=== PATIENT | female | born 1955 | race Caucasian/White ===

== ENCOUNTER 2025-01-27 10:12 | Outpatient (AMB) | payer MEDICARE, SELFPAY ==
[2025-01-27 10:53] VITALS: BMI 32.9
--- NOTE | 2025-01-27 10:53 | A.SPINEOV_ITS ---
Vital Signs 01/27/25 10:53 Height 5 ft 2 in Weight 180 lb BMI 32.9 Intake Visit Reasons: spinal stenosis Intake Note: Mrs. Longoria is here today c/o Low back pain difficulty with walking. Vending Machine Refiller Required: No Allergies No Known Allergies Allergy (Verified 01/27/25 10:54) Physical Exam Vital Signs: BMI result Body Mass Index 32.9 Assessment & Plan Assessment & Plan (1) Lumbar stenosis with neurogenic claudication: Code(s): M48.062 - Spinal stenosis, lumbar region with neurogenic claudication Category: Medical Plan Dear colleague Thank you for referring Malorie Longoria to the office today with a chief complaint of bilateral leg pain. HPI: This 69-year-old female has a 4 year history of a progressive pain down both legs with numbness after a short period of walking or standing. She can not stand or walk for more than 5 minutes before the symptoms started. If she stands in the kitchen she constantly has to sit down. Leaning forward improves the symptoms. She denies weakness bowel urinary problems. The following conservative treatment options were tried without success antiinflammatories, tylenol, physical therapy and 3 cortisone shots. One cortisone injection gave her relief for 2 months after the symptoms returned. PMH: Type 2 diabetes, Skin cancer Medications: Metformin, gabapentin Allergies: NKDA Social history: . Avid golfer. Nonsmoker Physical Exam: Pleasant female that is in severe agony after short period of standing in my office. The pain radiates down both legs with subjective paresthesias. On individual testing of the strength there are no deficits. Radiological Studies: MRI done at [facility] on 01/19/2025 shows severe L4-5 spinal stenosis. An MRI of 10/19/2023 shows a similar image. There was mild hyperintensity of the facet joints. A standing x-ray of 10/21/2018 shows no signs of instability. Impression/Plan: This patient is suffering from neurogenic claudication due to severe L4-5 spinal stenosis. She was offered aMILD procedure by pain management, which I think would be contraindicated in a patient with such as severe stenosis. I offered her an L4-5 decompression. She is scheduled for 04/06/2025 Thank you for allowing me to participate in your patients care. total time spent was 50 minutes in counseling ,coordination of plan, personal review of imaging, surgical decision making and subsequent plan Kristian Baker MD, PhD Spine Fellowship Trained Neurosurgeon Director, [facility] Coding Level of Care Code New Pt Level 4 (97963) Diagnoses Lumbar stenosis with neurogenic claudication M48.062
--- OUTSIDE RECORDS SUMMARY | 2025-01-27 11:03 | XMS_ITS | Encounter Summary ---
Author Organization [facility] Address [address] [place] [address] Phone Care Team Providers Care Sustainable Products Marketing Manager Name Role Phone Milad Beasley MD Unavailable + Ant Alcantar MD Unavailable Amy Callahan MD Unavailable [phone] Jesus Manuel Damon MD Unavailable Froy Gastelum MD Unavailable [phone] Amy Callahan A Primary Care Provider Jesus Manuel Damon MD Primary Care Provider + Amy Callahan A Primary Care Provider Encounter Details Date Type Department Care Team (Late st Contact Info) Description 10/13/2017 Ancillary Orders [facility] [address] [place] [address] Yareli Diane PA-C [address] [place] [address] Orthopedics & Sports Medicine, [facility] [place], [place] [id number] Social History Tobacco Use Types Packs/Day Years Used Date Smoking Tobacco: Never Smokeless Tobacco: Never Alcohol Use Standard Drinks/Week Comments Yes 0 (1 standard drink = 0.6 oz pur e alcohol) occasionally Comments No Sex and Gender Information Value Date Recorded Sex Assigned at Not on file Legal Sex Female 9:52 PM EDT Gender Identity Not on file Sexual Orientation Not on file documented as of this encounter Plan of Treatment Upcoming Encounters Date Type Department Care Team (Late st Contact Info) Description 08/29/2025 2:30 PM EDT Office Visit [facility] [address] [place] [address] [place] [address] Amy Callahan MD [address] [place] [address] [email or web address] documented as of this encounter Visit Diagnoses Not on filedocumented in this encounter Additional Health Concerns Infection Onset Date Last Indicated Resolved Time CoV-Risk 03/14/2020 03/15/2020 03/28/2020 1:24 AM EST documented as of this encounter Care Teams Sustainable Products Marketing Manager Relationship Specialty Start Date End Date Amy Callahan MD [address] [place] [address] [email or web address] PCP - General 02/10/17 10/06/18 Jesus Manuel Damon MD [address] [place] [address] [email or web address] PCP - General Family Medicine 10/07/18 10/20/18 Amy Callahan MD [address] [place] [address] [email or web address] PCP - General Internal Medicine 10/21/18 Milad Beasley MD [address] [place] [address] [email or web address] Historical LMR Provider 02/09/17 05/04/21 Ant Alcantar MD [address] [place] [address] [email or web address] Historical LMR Provider 02/09/17 Amy Callahan MD [address] [place] [address] [email or web address] Historical LMR Provider 02/09/17 Jesus Manuel Damon MD [address] [place] [address] [email or web address] Historical LMR Provider 10/07/18 Froy Gastelum MD [address] [place] [address] Historical LMR Provider 02/09/17 documented as of this encounter Additional Source Comments The information contained in this document represents components of the legal health record. It is not the complete legal health record.[facility]
--- OUTSIDE RECORDS SUMMARY | 2025-01-27 11:03 | XMS_ITS | Encounter Summary ---
Author Organization [facility] Address [address] [place] [address] [place] [address] Phone Care Team Providers Care Rn Faculty Name Role Phone Milad Beasley MD Unavailable + Ant Alcantar MD Unavailable [phone] Amy Callahan MD Unavailable [phone] Jesus Manuel Damon MD Unavailable [phone] Froy Gastelum MD Unavailable [phone] Amy Callahan MD Primary Care Provider Encounter Details Date Type Department Care Team (Late st Contact Info) Description 03/07/2021 Procedure Pass [facility] - [address] [place] [address] Social History Tobacco Use Types Packs/Day Years Used Date Smoking Tobacco: Never Smokeless Tobacco: Never Alcohol Use Standard Drinks/Week Comments Yes 5 (1 standard drink = 0.6 oz pur e alcohol) weekly Comments No Sex and Gender Information Value Date Recorded Sex Assigned at Not on file Legal Sex Female 9:52 PM EDT Gender Identity Not on file Sexual Orientation Not on file documented as of this encounter Plan of Treatment Upcoming Encounters Date Type Department Care Team (Late st Contact Info) Description 08/29/2025 2:30 PM EDT Office Visit [facility] [address] [place] [address] [place] [address] Amy Callahan MD [address] [place] [address] [email or web address] documented as of this encounter Visit Diagnoses Not on filedocumented in this encounter Additional Health Concerns Assessment Noted Time PHQ-2 Depression Total Score: 0 05/05/19 20 2:41 PM EST documented as of this encounter Care Teams Rn Faculty Relationship Specialty Start Date End Date Amy Callahan MD [address] [place] [address] [email or web address] PCP - General Internal Medicine 10/21/18 Milad Beasley MD [address] [place] [address] [email or web address] Historical LMR Provider 02/09/17 05/04/21 Ant Alcantar MD [address] [place] [address] [email or web address] Historical LMR Provider 02/09/17 Amy Callahan MD [address] [place] [address] [email or web address] Historical LMR Provider 02/09/17 Jesus Manuel Damon MD [address] [place] [address] [email or web address] Historical LMR Provider 10/07/18 Froy Gastelum MD [address] [place] [address] Historical LMR Provider 02/09/17 documented as of this encounter Additional Source Comments The information contained in this document represents components of the legal health record. It is not the complete legal health record.[facility]
--- OUTSIDE RECORDS SUMMARY | 2025-01-27 11:03 | XMS_ITS | Encounter Summary ---
Author Organization [facility] Address [address] [facility] [address] [place] [address] Phone Care Team Providers Care Patents Examiner Name Role Phone Milad Beasley MD Unavailable + Ant Alcantar MD Unavailable [phone] Amy Callahan MD Unavailable [phone] Jesus Manuel Damon MD Unavailable Froy Gastelum MD Unavailable [phone] Amy Callahan A Primary Care Provider [phone] Jesus Manuel Damon MD Primary Care Provider + Amy Callahan A Primary Care Provider [phone] Encounter Details Date Type Department Care Team (Late st Contact Info) Description 01/21/2018 Ancillary Orders [facility] [address] [place] [address] [place] [address] Amy Callahan MD [address] [facility], 2nd [place] [address] [email or web address] Breast screening Social History Tobacco Use Types Packs/Day Years [...] Description 08/29/2025 2:30 PM EDT Office Visit [facility] [address] [place] [address] [place] [address] Amy Callahan MD [address] [place] [address], [address] [place] [address] [email or web address] documented as of this encounter Results * BI MAMMOGRAM SCREENING WITH TOMOSYNTHESIS WITH CAD (BILATERAL) (04/01/2018 1:50 PM EST) Anatomical Region Laterality Modality Breast Left, Breast Right, Breast Bilateral Bila teral Mammography 04/02/2018 4:18 PM EST Impressions 04/02/2018 4:22 PM EST No mammographic change indicative of malignancy. Routine screening is recommended. BI-RADS CATEGORY: 1 - Negative. DENSITY: There are scattered fibroglandular densities. POS - CDHMAM2 Narrative 04/02/2018 4:22 PM EST FINDINGS: Bilateral full-field digital screening mammography is obtained and read in conjunction with computer-aided detection. 3-D tomosynthesis as well as 2-D C view imaging is also performed. Comparison includes the most recent exam from 03/12/2017 and as far back as 04/24/2011. Breasts are composed of scattered fibroglandular tissue. No new suspicious mass, suspicious microcalcifications, architectural distortion, focal skin thickening, or new asymmetry is detected. Procedure Note Vladimir Baldwin MD - 04/02/2018 FINDINGS: Bilateral full-field digital screening mammography is obtained and read inconjunction with computer-aided detection. 3-D tomosynthesis as well as2-D C view imaging is also performed. Comparison includes the most recentexam from 03/12/2017 and as far back as 04/24/2011. Breasts are composed of scattered fibroglandular tissue. No newsuspicious mass, suspicious microcalcifications, architectural distortion,focal skin thickening, or new asymmetry is detected. IMPRESSION: No mammographic change indicative of malignancy. Routine screening isrecommended. BI-RADS CATEGORY: 1 - Negative. DENSITY: There are scattered fibroglandular densities. POS - CDHMAM2 us Amy Callahan MD IMG MG EXAMS Final Result documented in this encounter Visit Diagnoses Diagnosis Breast screening Breast screening, unspecified Breast screening Breast screening, unspecified documented in this encounter Additional Health Concerns Infection Onset Date Last Indicated Resolved Time CoV-Risk 03/14/2020 03/15/2020 03/28/2020 1:24 AM EST documented as of this encounter Care Teams Patents Examiner Relationship Specialty Start Date End Date Amy Callahan MD [address] [place] [address] [email or web address] PCP - General 02/10/17 10/06/18 Jesus Manuel Damon MD [address] [place] [address] [email or web address] PCP - General Family Medicine 10/07/18 10/20/18 Amy Callahan MD [address] [place] [address] [email or web address] PCP - General Internal Medicine 10/21/18 Milad Beasley MD [address] [place] [address] [email or web address] Historical LMR Provider 02/09/17 05/04/21 Ant Alcantar MD [address] [place] [address] [email or web address] Historical LMR Provider 02/09/17 Amy Callahan MD [address] [place] [address], [address] [place] [place] [address] [email or web address] Historical LMR Provider 02/09/17 Jesus Manuel Damon MD [address] [place] [address] [email or web address] Historical LMR Provider 10/07/18 Froy Gastelum MD [address] [place] [address] Historical LMR Provider 02/09/17 documented as of this encounter Additional Source Comments The information contained in this document represents components of the legal health record. It is not the complete legal health record.[facility]
--- OUTSIDE RECORDS SUMMARY | 2025-01-27 11:03 | XMS_ITS | Encounter Summary ---
Author Organization [facility] Address [address] [place] [address] [place] [address] Phone Care Team Providers Care Engineering Librarian Name Role Phone Ant Alcantar MD Unavailable [phone] Amy Callahan MD Unavailable [phone] Jesus Manuel Damon MD Unavailable [phone] Amy Callahan MD Primary Care Provider [phone] Encounter Details Date Type Department Care Team (Late st Contact Info) Description 12/02/2022 Procedure Pass [place] Admitting Dept - Virtual Department [address] [place], [place] [id number] Social History Tobacco Use Types Packs/Day Years Used Date Smoking Tobacco: Never Smokeless Tobacco: Never Alcohol Use Standard Drinks/Week Comments Yes 10 (1 standard drink = 0.6 oz pu re alcohol) Child or Family Care Answer Date Record ed Do you have problems with on e of the following making it difficult for you to work, study, or receive health care? No 05/20/2022 Education Answer Date Recorded Are you interested in help w ith more adult education (for example, completing high school, GED, job training, learning the Hungarian language, technical skills, or developing parenting skills)? No 05/20/2022 Food Answer Date Recorded Within the past 6 months we worried whether our food would run out before we got money to buy more. Never True 05/20/2022 Within the past 6 months the food we bought just didn't last and we didn't have enough money to get more. Never True Residential Stability Answer Date Recor ded What is your housing situation today? I have anusha bolivar 05/20/2022 How many times have you move d in the past 12 months? Zero (I did not move) 05/20/2022 Paying for Meds Answer Date Recorded Do you have trouble paying for medicines? No 05/20/2022 Paying Utility Bills Answer Date Record ed Do you have trouble paying your heating or elect ricity bill? No 05/20/2022 Transportation Answer Date Recorded Has the lack of transportati on kept you from medical appointments or from getting medications? No 05/20/2022 Unemployment Answer Date Recorded Are you currently unemployed or working on a part-time or temporary basis, and looking for work? No 05/20/2022 Digital Access Answer Date Recorded No 09/16/2022 No 09/16/2022 Reliable internet access at home? Not on file 09/16/2022 Device with a working camera? Not on file Intimate Partner Violence Answer Date R ecorded Are you denied basic needs s uch as food, clothing, or medical care? No 12/02/2022 In the past 12 months have y ou been in a relationship with a person who hurts, threatens, or tries to control you? No 12/02/2022 Are you denied basic needs s uch as food, clothing, or medical care? No 12/02/2022 In the past 12 months have y ou been in a relationship with a person who hurts, threatens, or tries to control you? No 12/02/2022 Comments No Sex and Gender Information Value Date Recorded Sex Assigned at Not on file Legal Sex Female 9:52 PM EDT Gender Identity Not on file Sexual Orientation Not on file documented as of this encounter Plan of Treatment Upcoming Encounters Date Type Department Care Team (Late st Contact Info) Description 08/29/2025 2:30 PM EDT Office Visit [facility] [address] [place] [address] [place] [address] Amy Callahan MD [address] [place] [address], [address] [place] [address] [email or web address] documented as of this encounter Visit Diagnoses Not on filedocumented in this encounter Additional Health Concerns Assessment Noted Time PHQ-2 Depression Total Score: 0 05/20/19 23 1:15 PM EST documented as of this encounter Care Teams Engineering Librarian Relationship Specialty Start Date End Date Amy Callahan MD [address] [place] [address] [email or web address] PCP - General Internal Medicine 10/21/18 Ant Alcantar MD [address] [place] [address] [email or web address] Historical LMR Provider 02/09/17 Amy Callahan MD [address] [place] [address] [email or web address] Historical LMR Provider 02/09/17 Jesus Manuel Damon MD [address] [place] [address] [email or web address] Historical LMR Provider 10/07/18 documented as of this encounter Additional Source Comments The information contained in this document represents components of the legal health record. It is not the complete legal health record.[facility]
--- OUTSIDE RECORDS SUMMARY | 2025-01-27 11:03 | XMS_ITS | Encounter Summary ---
Author Organization [facility] Address [address] [place] [address] Phone Care Team Providers Care Grey Goods Examiner Name Role Phone Milad Beasley MD Unavailable + Ant Alcantar MD Unavailable [phone] Amy Callahan MD Unavailable [phone] Jeuss Manuel Damon MD Unavailable Froy Gastelum MD Unavailable [phone] Amy Callahan MD Primary Care Provider [phone] Encounter Details Date Type Department Care Team (Latest Contact Info) Description 04/22/2019 Transcribe Orders [address] [place] [address] Pasquale Hawthorne MD [address] [place] [address], [address] [place], [place] [id number] [email or web address] Weakness (Primary Dx) Social History Tobacco Use Types Packs/Day Years Used Date Smoking Tobacco: Never Smokeless Tobacco: Never Alcohol Use Standard Drinks/Week Comments Yes 3 (1 standard drink = 0.6 oz pur [...] Description 08/29/2025 2:30 PM EDT Office Visit [facility] [address] [place] [address] [place] [address] Amy Callahan MD [address] [place] [address] [email or web address] documented as of this encounter Results * (ABNORMAL) Glucose (04/22/2019 10:15 AM EST) GLUCOSE 121(H) 70 - 99 mg/dL [facility] Blood 04/22/2019 10:1 5 AM EST 04/22/2019 10:17 AM EST us Pasquale Hawthorne MD LAB BLOOD ORDERABLES Final R esult [facility] [address] [place] [address] documented in this encounter Visit Diagnoses Diagnosis Weakness- Primary Other malaise and fatigue documented in this encounter Additional Health Concerns Infection Onset Date Last Indicated Resolved Time CoV-Risk 03/14/2020 03/15/2020 03/28/2020 1:24 AM EST Assessment Noted Time PHQ-2 Depression Total Score: 0 04/29/19 2:47 PM EST documented as of this encounter Care Teams Grey Goods Examiner Relationship Specialty Start Date End Date Amy Callahan MD [address] [place] [address] [email or web address] PCP - General Internal Medicine 10/21/18 Milad Beasley MD [address] [place] [address] [email or web address] Historical LMR Provider 02/09/17 05/04/21 Ant Alcantar MD [address] [place] [address] [email or web address] Historical LMR Provider 02/09/17 Amy Callahan MD [address] [place] [address] [email or web address] Historical LMR Provider 02/09/17 Jesus Manuel Damon MD [address] [place] [address] [email or web address] Historical LMR Provider 10/07/18 Froy Gastelum MD [address] [place] [address] Historical LMR Provider 02/09/17 documented as of this encounter Additional Source Comments The information contained in this document represents components of the legal health record. It is not the complete legal health record.[facility]
--- OUTSIDE RECORDS SUMMARY | 2025-01-27 11:03 | XMS_ITS | Encounter Summary ---
Author Organization [facility] Address [address] [place] [address] Phone Care Team Providers Care Mohs Surgeon Name Role Phone Milad Beasley MD Unavailable + Ant Alcantar MD Unavailable [phone] Amy Callahan MD Unavailable [phone] Jesus Manuel Damon MD Unavailable Froy Gastelum MD Unavailable [phone] Amy Callahan A Primary Care Provider Jesus Manuel Damon MD Primary Care Provider + Amy Callahan A Primary Care Provider Encounter Details Date Type Department Care Team (Late st Contact Info) Description 10/13/2017 Ancillary Orders [address] [address] Yareli Diane PA-C [address] [place] [address] Orthopedics & Sports Medicine, [place], [place] [id number] [email or web address] Left wrist pain Social History Tobacco Use Types Packs/Day Years [...] 08/29/2025 2:30 PM EDT Office Visit [facility] [address] [place] [address] [place] [address] Amy Callahan MD [address] [place] [phone] [email or web address] documented as of this encounter Results * XR WRIST 2 VIEWS (LEFT) (10/15/2017 9:49 AM EDT) Narrative Rosie Hernández - 10/15/2017 9:49 AM EDT This image report has been auto-finalized and has not been read by a Radiologist. Interpretation has been included in the provider encounter note for this date of service. us Roxy Mello MD IMG XR UPPER EXTREMITY Final Result documented in this encounter Visit Diagnoses Diagnosis Left wrist pain Pain in joint, forearm Left wrist pain Pain in joint, forearm documented in this encounter Additional Health Concerns Infection Onset Date Last Indicated Resolved Time CoV-Risk 03/14/2020 03/15/2020 03/28/2020 1:24 AM EST documented as of this encounter Care Teams Mohs Surgeon Relationship Specialty Start Date End Date Amy Callahan MD [address] [place] [address] [email or web address] PCP - General 02/10/17 10/06/18 Jesus Manuel Damon MD [address] [place] [address] [email or web address] PCP - General Family Medicine 10/07/18 10/20/18 Amy Callahan MD [address] [place] [phone] [email or web address] PCP - General Internal Medicine 10/21/18 Milad Beasley MD [address] [place] [phone] [email or web address] Historical LMR Provider 02/09/17 05/04/21 Ant Alcantar MD [address] [place] [address] [email or web address] Historical LMR Provider 02/09/17 Amy Callahan MD [address] [place] [address] [email or web address] Historical LMR Provider 02/09/17 Jesus Manuel Damon MD [address] [place] [address] [email or web address] Historical LMR Provider 10/07/18 Froy Gastelum MD [address] [place] [address] Historical LMR Provider 02/09/17 documented as of this encounter Additional Source Comments The information contained in this document represents components of the legal health record. It is not the complete legal health record.[facility]
--- OUTSIDE RECORDS SUMMARY | 2025-01-27 11:03 | XMS_ITS | Encounter Summary ---
Author Organization [facility] Address [address] [facility] [address] [place] [address] Phone Care Team Providers Care Mortgage Loan Funder Name Role Phone Ant Alcantar MD Unavailable [phone] Amy Callahan MD Unavailable [phone] Jesus Manuel Damon MD Unavailable [phone] Amy Callahan MD Primary Care Provider [phone] Encounter Details Date Type Department Care Team (Late st Contact Info) Description 03/11/2024 Procedure Pass [facility] [address] [place] [address] Social History Tobacco Use Types Packs/Day Years Used Date Smoking Tobacco: Never Smokeless Tobacco: Never Alcohol Use Standard Drinks/Week Comments Yes 12 (1 standard drink = 0.6 oz pu [...] high school, GED, job training, learning the [place] language, technical skills, or developing parenting skills)? [...] EDT Office Visit [facility] [address] [place] [address] [place] [address] Amy Callahan MD [address] [place] [address], [address] [place] [address] [email or web address] documented as of this encounter Visit Diagnoses Not on filedocumented in this encounter Additional Health Concerns Assessment Noted Time PHQ-2 Depression Total Score: 0 07/28/19 25 10:26 AM EDT documented as of this encounter Care Teams Mortgage Loan Funder Relationship Specialty Start Date End Date Amy Callahan MD [address] [place] [address] [email or web address] PCP - General Internal Medicine 10/21/18 Ant Alcantar MD [address] [place] [address] [email or web address] Historical LMR Provider 02/09/17 Amy Callahan MD [address] [place] [address] [email or web address] Historical LMR Provider 02/09/17 Jesus Manuel Damon MD [address] [place] [address] [email or web address] Historical LMR Provider 10/07/18 documented as of this encounter Additional Source Comments The information contained in this document represents components of the legal health record. It is not the complete legal health record.[facility]
--- OUTSIDE RECORDS SUMMARY | 2025-01-27 11:03 | XMS_ITS | Encounter Summary ---
Author Organization [facility] Address [address] [place] [address] [place] [address] Phone Care Team Providers Care Crime Investigator Special Agent Name Role Phone Ant Alcantar MD Unavailable [phone] Amy Callahan MD Unavailable [phone] Jesus Manuel Damon MD Unavailable [phone] Amy Callahan MD Primary Care Provider Encounter Details Date Type Department Care Team (Late st Contact Info) Description 08/02/2024 Procedure Pass [facility] [address] [place], [place] [id number] Social History Tobacco Use Types Packs/Day Years Used Date Smoking Tobacco: Never Smokeless Tobacco: Never Alcohol Use Standard Drinks/Week Comments Yes 10 (1 standard drink = 0.6 oz pu re alcohol) Child or Family Care Answer Date Record ed Do you have problems with on e of the following making it difficult for you to work, study, or receive health care? No 07/27/2024 Education Answer Date Recorded Are you interested in more education? Not on bam e 05/20/2024 Are you concerned about learning? Not on file 05/20/2024 No 05/20/2024 No 05/20/2024 Food Answer Date Recorded Within the past 6 months we worried whether our food would run out before we got money to buy more. Never True 07/27/2024 Within the past 6 months the food we bought just didn't last and we didn't have enough money to get more. Never True Residential Stability Answer Date Recor ded What is your housing situation today? I have anusha bolivar 07/27/2024 How many times have you move d in the past 12 months? Zero (I did not move) 07/27/2024 Paying for Meds Answer Date Recorded Do you have trouble paying for medicines? No 07/27/2024 Paying Utility Bills Answer Date Record ed Do you have trouble paying your heating or elect ricity bill? No 07/27/2024 Transportation Answer Date Recorded Has the lack of transportati on kept you from medical appointments or from getting medications? No 07/27/2024 Unemployment Answer Date Recorded Are you currently unemployed or working on a part-time or temporary basis, and looking for work? No 05/20/2022 Digital Access Answer Date Recorded No 07/27/2024 Yes 07/27/2024 Do you have reliable internet access at home? Ye s 07/27/2024 Do you have a device (e.g., phone, tablet, computer) with a working camera? Yes 07/27/2024 Intimate Partner Violence Answer Date R ecorded Denied Basic Needs Not on file 07/27/2024 In the past 12 months have y ou been in a relationship with a person who hurts, threatens, or tries to control you? No 07/27/2024 Worried food would run out Not on file 07/27 In the past 12 months have y ou been in a relationship with a person who hurts, threatens, or tries to control you? No 07/27/2024 Comments No Sex and Gender Information Value Date Recorded Sex Assigned at Not on file Legal Sex Female 9:52 PM EDT Gender Identity Not on file Sexual Orientation Not on file documented as of this encounter Plan of Treatment Upcoming Encounters Date Type Department Care Team (Late st Contact Info) Description 08/29/2025 2:30 PM EDT Office Visit [facility] [address] [place] [address] [place] [address] Amy Callahan MD [address] [place] [address], [address] [place] [address] documented as of this encounter Visit Diagnoses Not on filedocumented in this encounter Additional Health Concerns Assessment Noted Time PHQ-2 Depression Total Score: 0 07/28/19 25 10:26 AM EDT documented as of this encounter Care Teams Crime Investigator Special Agent Relationship Specialty Start Date End Date Amy Callahan MD [address] [place] [address] [email or web address] PCP - General Internal Medicine 10/21/18 Ant Alcantar MD [address] [place] [address] [email or web address] Historical LMR Provider 02/09/17 Amy Callahan MD [address] [place] [address] [email or web address] Historical LMR Provider 02/09/17 Jesus Manuel Damon MD [address] [place] [address] [email or web address] Historical LMR Provider 10/07/18 documented as of this encounter Additional Source Comments The information contained in this document represents components of the legal health record. It is not the complete legal health record.[facility]
--- OUTSIDE RECORDS SUMMARY | 2025-01-27 11:04 | XMS_ITS | Clinical Summary ---
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 Active gabapentin (NEURONTIN) 100 MG capsule Take 100 mg by mouth daily. 1-3 tablets daily Active tretinoin (RETIN-A) 0.05 % cream Apply topically nightly at bedtime. 4 Active metFORMIN (GLUCOPHAGE-XR) 500 MG 24 hr tablet Take 1 tablet (500 mg total) by mouth daily with dinner. 90 tablet 3 4 Active doxepin (SINEQUAN) 10 MG capsule Take 1 capsule (10 mg total) by mouth nightly at bedtime. 90 capsule 3 5 Active Active Problems Problem Noted Date Diagnosed Date Pre-diabetes 04/13/2024 Class 1 obesity 11/05/2022 11/05/2022 Facial basal cell cancer 07/15/2022 Overview (07/15/2022): Nose. Scheduled for Mohs procedure with next day plastic surgery reconstruction. Spinal stenosis 10/21/2018 Assessment & Plan (10/21/2018 3:06 PM EDT): Patient with bilateral thigh pain going down to the calves most likely central disc pinching a nerve effect is at night in the morning feel may be spinal stenosis did recommend starting with regular x-ray and then proceeding to physiatry. Did recommend Aleve but also prescription for prednisone 20 twice a day for 6 days if the pain worsens Myalgia 10/21/2018 Assessment & Plan (10/21/2018 3:06 PM EDT): Patient with bilateral calf but more thigh pain could be muscular but is a do not see this being due to any low potassium and low magnesium patient without sweating or any diuretics or GI blood loss. The possibility of Lyme's is low but real will check that and also check a CBC and sed rate Vulvar itching 12/03/2017 Assessment & Plan (12/03/2017 11:58 AM EDT): custodial symptoms with normal wet mount today. Rx given for hydrocortisone and terbinafine given exam findings. Reviewed application instructions, discussed vulvar skin care recommendations particularly around use of clear detergent and avoidance of fabric softener. Also discussed coconut oil PRN as moisture barrier. Closed fracture of left distal radius and ulna 0 09/11/2017 Encounters Date Type Department Care Team Description 01/19/2025 5:42 PM EDT - 01/19/2025 11:59 PM EDT Hospital Encounter [address] [address] Pasquale Vo, DO Discharge Disposition: Home or Self Care 12/22/2024 Procedure Pass [address] [address] 12/22/2024 Transcribe Orders Virtual Department [address] [place] [id number] Pasquale Vo, DO Spinal stenosis, lumbar region with neurogenic claudication (Primary Dx) 11/24/2024 1:13 PM EDT - 11/24/2024 11:59 PM EDT Hospital Encounter [facility], X-Ray - [facility] [address] [place] [address] Kayleen Nunez PA Discharge Disposition: Home or Self Care 11/15/2024 Transcribe Orders Virtual Department [address] [place] [address] Kayleen Nunez PA Other osteoarthritis of spine, lumbar region (Primary Dx) from Last 3 Months Immunizations Immunization Administration Dates Next Due COVID-19 (Pre-02/16) Moderna Vaccine, mRNA, PF 0 06/02/2020 COVID-19 (Pre-02/16) Pfizer Vaccine, mRNA, PF Influenza High-Dose Quadrivalent Preservative Fr ee IM 01/21/2023 Influenza Quadrivalent MDCK Preservative Free IM 01/14/2022 Influenza Trivalent Adjuvanted Preservative free IM 03/11/2024 Influenza, Unspecified Formulation 01/06/2008 Pneumococcal conjugate PCV20 05/20/2022 Td (adult),2 Lf Tetanus Toxoid, PF, Adsorbed Tdap 04/02/2021,02/02/2014 Zoster recombinant 08/27/2020,05/05/2019 Family History Medical History Relation Comments Sudden Brother Diabetes mellitus Mother Relation Status Comments Brother Father Mother Social History Tobacco Use Types Packs/Day Years Used Date Smoking Tobacco: Never Smokeless Tobacco: Never Tobacco Cessation:Counseling Given: Not Answered Alcohol Use Standard Drinks/Week Comments Yes 12 [...] on file Sexual Orientation Not on file Last Filed Vital Signs Vital Sign Reading Time Taken Comments Blood Pressure 134/66 08/02/2024 2:23 PM EDT Pulse 87 08/02/2024 2:23 PM EDT Temperature 36.2 C (97.1 F) 08/02/2024 2:23 PM EDT Respiratory Rate 13 12/02/2022 4:10 PM EDT Oxygen Saturation 96% 08/02/2024 2:23 PM EDT Inhaled Oxygen Concentration - - Weight 83.5 kg (184 lb) 01/13/2025 11:27 AM EDT Height 154.9 cm (5' 1 ) 01/13/2025 11:27 AM EDT Body Mass Index 34.77 01/13/2025 11:27 AM EDT Plan of Treatment Upcoming Encounters Date Type Department Care Team (Late st Contact Info) Description 08/29/2025 2:30 PM EDT Office Visit [facility] [address] [place] [address] Dr Kaminski JOSE LUIS [address] Amy Callahan MD [address] [place] [address], [address] [place] [address] [email or web address] Health Maintenance Due Date Last Done Comments COLOGUARD 2002 FIT TEST 2002 FOBT 2002 SIGMOIDOSCOPY 2002 VIRTUAL COLONOSCOPY 2002 INFLUENZA VACCINE (#1) 2024 , 01/21/2023, 01/14/2022, Additional history exists COVID-19 VACCINE ( season) 2024 03/11/2024, 01/21/2023, 11/22/2021, Additional history exists DEPRESSION SCREENING 07/27/2025 07/27/2024 CREATININE LEVEL 07/29/2025 07/29/2024, , 05/19/2022, Additional history exists PAP SMEAR 05/16/2026 05/16/2021, 02/20/2017 MAMMOGRAM 08/26/2026 08/26/2024, 08/2023, 04/30/2022, Additional history exists SCREENING FOR DIABETES 07/30/2027 , 07/29/2024, 04/22/2019, Additional history exists COLONOSCOPY 10/07/2028 10/07/2018 COLORECTAL CANCER SCREENING 10/07/2028 LIPID PANEL 07/29/2029 07/29/2024, 05/10/2020 Adult Td,Tdap Booster 04/02/2031 04/02/2021 , 02/02/2014, 02/24/2006 RSV VACCINE (1 - 1-dose 75+ series) 2032 ZOSTER VACCINES Completed 08/27/2020, 05/05/2019 PNEUMOCOCCAL VACCINES (50+ years) Completed 05/20/2022 HEPATITIS C SCREENING Completed 09/25/2023 OSTEOPOROSIS SCREENING INITIAL (ONE-TIME) Completed 03/23/2024 SMOKING STATUS SCREENING (Once After 26 Yrs) Completed 08/26/2024 HEPATITIS A VACCINES Aged Out No long er eligible based on patient's age to complete this topic HIB VACCINES Aged Out No longer eligi ble based on patient's age to complete this topic MENINGOCOCCAL VACCINES (ACWY) Aged Out No longer eligible based on patient's age to complete this topic MENINGOCOCCAL VACCINES (B) Aged Out N o longer eligible based on patient's age to complete this topic Medical Devices Not on file Procedures Procedure Name Priority Date/Time Associated Diagnosis Comments MRI LUMBAR SPINE (NEURO) WITHOUT CONTRAST Routine 01/19/2025 6:40 PM EDT Spinal stenosis, lumbar region with neurogenic claudication XR LUMBOSACRAL SPINE 4 OR MORE VIEWS Routine 11/24/2024 1:38 PM EDT Other osteoarthritis of spine, lumbar region BI MAMMOGRAM SCREENING WITH TOMOSYNTHESIS WITH CAD (BILATERAL) Routine 08/26/2024 11:07 AM EDT Visit for screening mammogram LIPID PANEL Routine 07/29/2024 10:06 AM EDT Screening, lipid COMPREHENSIVE METABOLIC PANEL Routine 07/29/2024 10:06 AM EDT Age-related osteoporosis without current pathological fracture BD DXA AXIAL (SPINE) WITH HIP Routine 03/23/2024 10:57 AM EST Estrogen deficiency HEPATITIS C ANTIBODY, QUALITATIVE Routine 09/25/2023 11:51 AM EDT Need for hepatitis C screening test PAP TEST Routine 05/16/2021 12:00 AM EST GLUCOSE Routine 04/22/2019 10:15 AM EST Weakness HM COLONOSCOPY FOR RESULT ENTRY ONLY Routine 10/07/2018 from Last 3 Months or Most Recently Relevant to Health Maintenance Results * MRI LUMBAR SPINE (NEURO) WITHOUT CONTRAST (01/19/2025 6:40 PM EDT) Anatomical Region Laterality Modality L-spine Magnetic Resonan ce 01/20/2025 9:01 AM EDT Impressions 01/20/2025 9:10 AM EDT 1. Multilevel degenerative disc disease changes of the cervical spine as detailed above, most prominent at L4-L5 level with severe spinal canal stenosis and impingement on the cauda equina nerve roots. Varying degrees of bilateral neural foramina narrowing, with moderate to severe right neural foramina narrowing at L4-L5. Overall, degenerative disc disease changes appear similar compared to prior study. Neurosurgical evaluation would be of value. Narrative 01/20/2025 9:10 AM EDT MRI LUMBAR SPINE (NEURO) WITHOUT CONTRAST Referring clinician's provided indication for this examination in Epic: Outside Radiology Order; spinal stenosis TECHNIQUE: MRI LUMBAR SPINE (NEURO) WITHOUT CONTRAST Multi-sequence, multi-planar MRI of the lumbar spine was performed without intravenous contrast. COMPARISON: XR LUMBOSACRAL SPINE 4 OR MORE VIEWS ; MRI LUMBAR SPINE (NEURO) WITHOUT CONTRAST FINDINGS: LUMBAR SPINE: Alignment and Vertebrae: There is normal lumbar lordosis. Mild dextroconvex curvature of the thoracolumbar spine is seen. There is mild grade 1 anterolisthesis of L4 on L5, unchanged. There is chronic L1 compression fracture with 30% vertebral body height loss, unchanged. Vertebral body heights are otherwise maintained without evidence of acute compression fracture. Marrow: No focal aggressive osseous lesions are identified. There is mild bone marrow edema involving the right L4-L5 facet joint and right L5 pedicle, appear similar compared to prior study. Discs and Endplates: There is disc desiccation throughout the lumbar spine. Conus: Conus medullaris terminates at L1. The cauda equina nerve roots are unremarkable. Soft Tissues: The visualized retroperitoneum is unremarkable. The paraspinal musculature is unremarkable. Other Findings: None. Findings by level: T12-L1: No spinal or foraminal stenosis. L1-L2: No spinal or foraminal stenosis. L2-L3: There is mild diffuse disc bulge with superimposed right and left bilateral subarticular disc protrusions, resulting in lmul-tb-jdnwqnhm spinal canal stenosis and moderate bilateral neural foramina narrowing. Overall, degenerative disc disease changes appear similar compared to prior study. L3-L4: There is diffuse disc bulge with bilateral facet hypertrophy and ligamentum flavum thickening, resulting in bsrm-sk-uxfvccln spinal canal stenosis and moderate bilateral neural foramina narrowing. Overall, degenerative disc disease changes have not significantly changed. L4-L5: There is mild unroofing of the disc. There is diffuse disc bulge with marked bilateral facet hypertrophy and ligamentum flavum thickening, resulting in severe spinal canal stenosis and impingement on the cauda equina nerve roots. There is moderate to severe right and moderate left neural foramina narrowing. Overall, degenerative disc disease changes appear similar compared to prior study. L5-S1: Bilateral facet hypertrophy and mild disc bulge. No significant spinal canal stenosis or neural foramina narrowing Procedure Note Romy Ray MD - 01/20/2025 MRI LUMBAR SPINE (NEURO) WITHOUT CONTRAST Referring clinician's provided indication for this examination in Epic:Outside Radiology Order; spinal stenosis TECHNIQUE: MRI LUMBAR SPINE (NEURO) WITHOUT CONTRAST Multi-sequence, multi-planar MRI of the lumbar spine was performed withoutintravenous contrast. COMPARISON: XR LUMBOSACRAL SPINE 4 OR MORE VIEWS ; MRI LUMBARSPINE (NEURO) WITHOUT CONTRAST FINDINGS: LUMBAR SPINE: Alignment and Vertebrae: There is normal lumbar lordosis. Milddextroconvex curvature of the thoracolumbar spine is seen. There is mildgrade 1 anterolisthesis of L4 on L5, unchanged. There is chronic [id number] fracture with 30% vertebral body height loss, unchanged.Vertebral body heights are otherwise maintained without evidence of acutecompression fracture. Marrow: No focal aggressive osseous lesions are identified. There is mildbone marrow edema involving the right L4-L5 facet joint and right Q4oseqghl, appear similar compared to prior study. Discs and Endplates: There is disc desiccation throughout the lumbarspine. Conus: Conus medullaris terminates at L1. The cauda equina nerve roots areunremarkable. Soft Tissues: The visualized retroperitoneum is unremarkable. Theparaspinal musculature is unremarkable. Other Findings: None. Findings by level: T12-L1: No spinal or foraminal stenosis. L1-L2: No spinal or foraminal stenosis. L2-L3: There is mild diffuse disc bulge with superimposed right and leftbilateral subarticular disc protrusions, resulting in pnuw-of-apmorsinqvhpvb canal stenosis and moderate bilateral neural foramina narrowing.Overall, degenerative disc disease changes appear similar compared [facility] study. L3-L4: There is diffuse disc bulge with bilateral facet hypertrophy andligamentum flavum thickening, resulting in wgbv-nl-jcqrccfh spinal canalstenosis and moderate bilateral neural foramina narrowing. Overall,degenerative disc disease changes have not significantly changed. L4-L5: There is mild unroofing of the disc. There is diffuse disc bulgewith marked bilateral facet hypertrophy and ligamentum flavum thickening,resulting in severe spinal canal stenosis and impingement on the caudaequina nerve roots. There is moderate to severe right and moderate leftneural foramina narrowing. Overall, degenerative disc disease changesappear similar compared to prior study. L5-S1: Bilateral facet hypertrophy and mild disc bulge. No significantspinal canal stenosis or neural foramina narrowing IMPRESSION: 1. Multilevel degenerative disc disease changes of the cervical spine asdetailed above, most prominent at L4-L5 level with severe spinal canalstenosis and impingement on the cauda equina nerve roots. Varying degreesof bilateral neural foramina narrowing, with moderate to severe rightneural foramina narrowing at L4-L5. Overall, degenerative disc diseasechanges appear similar compared to prior study. Neurosurgical evaluationwould be of value. us Pasquale Vo DO IMG MR XSPECIALTY Final Resu lt * XR LUMBOSACRAL SPINE 4 OR MORE VIEWS (11/24/2024 1:38 PM EDT) Anatomical Region Laterality Modality L-spine Computed Radiogr aphy 11/25/2024 8:55 AM EDT Impressions 11/25/2024 8:56 AM EDT L1 compression fracture, with almost 50% loss of height centrally, without change in appearance or morphology compared to lumbar MR of 10/19/2023. No new compression fracture seen. Qualitative osteopenia. Mild hypertrophic facet arthropathy. Mild multilevel degenerative endplate changes with anterior bridging osteophyte at T12-L1. Narrative 11/25/2024 8:56 AM EDT XR LUMBOSACRAL SPINE 4 OR MORE VIEWS Referring clinician's provided indication for this examination in Epic: Outside Radiology Order COMPARISON: MRI LUMBAR SPINE (NEURO) WITHOUT CONTRAST Procedure Note Eduardo Wilks MD - 11/25/2024 XR LUMBOSACRAL SPINE 4 OR MORE VIEWS Referring clinician's provided indication for this examination in Epic:Outside Radiology Order COMPARISON: MRI LUMBAR SPINE (NEURO) WITHOUT CONTRAST IMPRESSION: L1 compression fracture, with almost 50% loss of height centrally, withoutchange in appearance or morphology compared to lumbar MR of 10/19/2023. Nonew compression fracture seen. Qualitative osteopenia. Mild hypertrophicfacet arthropathy. Mild multilevel degenerative endplate changes withanterior bridging osteophyte at T12-L1. Kayleen LOMELI IMG XR SPINE Final Result * BI MAMMOGRAM SCREENING WITH TOMOSYNTHESIS WITH CAD (BILATERAL) (08/26/2024 11:07 AM EDT) Anatomical Region Laterality Modality Breast Left, Breast Right, Breast Bilateral Bila teral Mammography 08/29/2024 12:3 6 PM EDT Impressions 08/29/2024 12:37 PM EDT No mammographic evidence of malignancy in either breast. Annual screening mammography is recommended. BI-RADS 1 NEGATIVE The patient will be notified of the results and recommendations. Narrative 08/29/2024 12:37 PM EDT BI MAMMOGRAM SCREENING WITH TOMOSYNTHESIS WITH CAD (BILATERAL) Additional patient information: Screening. COMPARISON: Comparison is made with relevant prior imaging. Breast composition: There are scattered areas of fibroglandular density. FINDINGS: No abnormal masses, suspicious calcifications, or other significant findings are identified mammographically in either breast. Procedure Note Torrie Terry MD - 08/29/2024 BI MAMMOGRAM SCREENING WITH TOMOSYNTHESIS WITH CAD (BILATERAL) Additional patient information: Screening. COMPARISON: Comparison is made with relevant prior imaging. Breast composition: There are scattered areas of fibroglandular density. FINDINGS: No abnormal masses, suspicious calcifications, or other significantfindings are identified mammographically in either breast. IMPRESSION: No mammographic evidence of malignancy in either breast. Annual screening mammography is recommended. BI-RADS 1 NEGATIVE The patient will be notified of the results and recommendations. us Amy A London [facility] MG EXAMS Final Result * (ABNORMAL) Comprehensive metabolic panel (07/29/2024 10:06 AM EDT) SODIUM 145 133 - 146 mmol/L [facility] POTASSIUM 4.9 3.3 - 5.1 mmol/L [facility] CHLORIDE 106 96 - 108 mmol/L [facility] CO2 29 21 - 35 mmol/L [facility] BUN 18 6 - 19 mg/dL [facility] CREATININE 0.80 0.5 - 1.5 mg/dL [facility] GLUCOSE 115(H) 70 - 99 mg/dL [facility] ALBUMIN 4.6 3.9 - 4.8 g/dL [facility] TOTAL PROTEIN 7.6 6.5 - 8.0 g/dL [facility] CALCIUM 9.4 8.4 - 10.3 mg/dL [facility] ALKALINE PHOSPHATASE 82 39 - 117 U/L [facility] TOTAL BILIRUBIN 0.3 0.0 - 1.2 mg/dL [facility] AST 30 0 - 37 U/L [facility] ALT 26 0 - 40 U/L [facility] GLOBULIN 3.0 1 - 4.8 g/dL [facility] EGFR 81 >59 mL/min/1.7 3m2 [facility] Comment:Estimated glomerular filtration rate calculated using the CKD-EPI refit equation. ANION GAP 15 10 - 20 mmol/L [facility] Blood 07/29/2024 10:0 6 AM EDT 07/29/2024 10:15 AM EDT us Amy A London [facility] BLOOD ORDERABLES Final Re sult Performing Organization Address [facility] Co de Phone Number [address] [address] * (ABNORMAL) Lipid panel (07/29/2024 10:06 AM EDT) HDL 69 mg/dL [facility] Comment: Interpretation <40 mg/dL: Low HDL cholesterol (major risk factor for CHD) Greater than or equal to 60 mg/dL: High HDL cholesterol ( negative risk factor for CHD) HDL - cholesterol is affected by a number of factors, e.g. smoking, excerise, hormones, sex and age. CHOLESTEROL 188 0 - 240 mg/dL [facility] TRIGLYCERIDES 81 30 - 160 mg/dL [facility] LDL 103 50 - 129 mg/dL [facility] Comment: LDL levels in terms of risk for coronary heart disease: <100 mg/dL: Optimal 100-129 mg/dL: Near or above optimal 130-159 mg/dL: Borderline high 160-189 mg/dL: High >190 mg/dL: Very High CARDIAC RISK RATIO 2.7(L) 3.3 - 4.4 [facility] Blood 07/29/2024 10:0 6 AM EDT 07/29/2024 10:15 AM EDT us Amy A London [facility] BLOOD ORDERABLES Final Re sult Performing Organization Address [facility] Co de Phone Number [address] [address] * BD DXA AXIAL (SPINE) WITH HIP (03/23/2024 10:57 AM EST) Anatomical Region Laterality Modality Bone Density Bone Density 03/23/2024 10:5 3 AM EST Impressions 03/23/2024 11:00 AM EST Interpretation: Osteoporosis. Narrative 03/23/2024 11:00 AM EST Referred By: AMY CALLAHAN Indications: Estrogen Deficiency Scanner: [employer] A with serial# of [id number] located at [facility] Bone Density Scan (DXA) 03/23/24 Details of prior DXA scans are available by clicking View Image BMD T- Z- Skeletal Site gm/cm2 score score BMD Change Since Prior Scan ------ ----- ----- PA Spine (L1 L3 L4) 0.783 -2.50 -0.50 N/A Total Hip (Left) 0.721 -1.80 -0.50 N/A Femoral Neck (Left) 0.609 -2.20 -0.50 N/A Total Hip (Right) 0.782 -1.30 0.00 N/A Femoral Neck (Right) 0.618 -2.10 -0.50 N/A ------ ----- ----- * Denotes significant change when >= 0.022 g/cm2 for the spine, 0.027 g/cm2 for the total hip, 0.029 g/cm2 for the femoral neck. Interpretation: Osteoporosis. Technical Quality: Imaging of all sites was of adequate quality. FRAX: A FRAX(r) score is not provided because the patient has osteoporosis, which is generally an indication for treatment. Additional Information: -World Health Organization criteria classify adults based on lowest T-score at PA spine, hip or forearm: Normal (T-score >= -1.0), Osteopenia (T-score between -1 and -2.5), or Osteoporosis (T-score <= -2.5). At [facility], T-scores are compared to peak bone density of a young white gender matched reference population. - For premenopausal women and men under the age of 50, Z-scores (comparison to age, gender, and ethnicity matched reference population) are used: Above expected range for age (Z-score >= 2.0), Within expected range of age (Z-score 1.9 to -1.9), or Below expected range for age (Z-score <= -2.0). - The Bone Health and Osteoporosis Foundation recommends that treatment be considered in men aged more than 50 years and in postmenopausal women with ANY of the following: Prior hip or vertebral fractures; T-score of <= -2.5 at the PA spine or hip; or 10 year fracture probability by FRAX of >= 3% for the hip or >= 20% for major osteoporotic fracture. - The FRAX algorithm (https://www.jessica.ac.uk/FRAX/tool.aspx) is designed to predict 10-year fracture risk in treatment-naive adults between the ages of 40 and 90. It is not intended to be used in those receiving pharmacologic osteoporosis treatment. - Including race/ethnicity in the generation of T- or Z-scores or in the FRAX calculation is complicated, and currently undergoing active review to ensure that we can give patients the best information on their risk of fracture. -Some prior studies may not be compatible with our comparison software. -Click on View Full Report to see subsequent pages with images and prior bone density results. Reviewed By: Mya Lin MD on 03/23/2024 11:00:10 Procedure Note Mya Lin MD - 03/23/2024 Referred By: AMY CALLAHAN Indications: Estrogen Deficiency Scanner: [employer] A with serial# of [id number] located at [facility] Bone Density Scan (DXA) 03/23/24 Details of prior DXA scans are available by clicking View Image BMD T- Z- Skeletal Site gm/cm2 score score BMD Change Since Prior Scan ------ ----- PA Spine (L1 L3 L4) 0.783 -2.50 -0.50 N/A Total Hip (Left) 0.721 -1.80 -0.50 N/A Femoral Neck (Left) 0.609 -2.20 -0.50 N/A Total Hip (Right) 0.782 -1.30 0.00 N/A Femoral Neck (Right) 0.618 -2.10 -0.50 N/A ------ ----- * Denotes significant change when >= 0.022 g/cm2 for the spine, 0.027g/cm2 for the total hip, 0.029 g/cm2 for the femoral neck. Interpretation: Osteoporosis. Technical Quality: Imaging of all sites was of adequate quality. FRAX: A FRAX(r) score is not provided because the patient hasosteoporosis, which is generally an indication for treatment. Additional Information: -World Health Organization criteria classify adults based on lowestT-score at PA spine, hip or forearm: Normal (T-score >= -1.0), Osteopenia (T-score between -1 and -2.5), or Osteoporosis (T-score <= -2.5). At [facility], T-scores are compared to peak bone density of a young white gender matched reference population. - For premenopausal women and men under the age of 50, Z-scores(comparison to age, gender, and ethnicity matched reference population) are used:Above expected range for age (Z-score >= 2.0), Within expected range of age (Z-score 1.9 to -1.9), or Below expected range for age (Z-score <= -2.0). - The Bone Health and Osteoporosis Foundation recommends that treatment be considered in men aged more than 50 years and in postmenopausal women with ANY of the following: Prior hip or vertebral fractures; T-score of <= -2.5 at the PA spine or hip; or 10 year fracture probability by FRAX of >= 3%for the hip or >= 20% for major osteoporotic fracture. - The FRAX algorithm (https://www.jessica.ac.uk/FRAX/tool.aspx) is designed to predict 10-year fracture risk in treatment-naive adultsbetween the ages of 40 and 90. It is not intended to be used in those receiving pharmacologic osteoporosis treatment. - Including race/ethnicity in the generation of T- or Z-scores or in the FRAX calculation is complicated, and currently undergoing active review to ensure that we can give patients the best information on their risk of fracture. -Some prior studies may not be compatible with our comparison software. -Click on View Full Report to see subsequent pages with images and prior bone density results. Reviewed By: Mya Lin MD on 03/23/2024 11:00:10 IMPRESSION: Interpretation: Osteoporosis. us Amy A London [facility] IMG BD BONE DENSITY DEXA Nimisha l Result * Hepatitis C antibody, qualitative (09/25/2023 11:51 AM EDT) HCV NON-REACTIV E NON-REACTI VE [facility] Blood 09/25/2023 11:5 1 AM EDT 09/25/2023 12:00 PM EDT us Amy A London [facility] LAB BLOOD ORDERABLES Final Re sult [address] [address] * Pap Smear (05/16/2021 12:00 AM EST) 05/16/2021 05/17/2021 8:4 1 AM EST Narrative SEE NARRATIVE - 05/21/2021 3:49 PM EST [address] [address] Market Consultant: Laura Joseph MD ORGANIZATIONAL DEVELOPMENT CONSULTANT Cytology Report FINAL DIAGNOSIS A. PAP SMEAR (SUREPATH) CE: SPECIMEN ADEQUACY: Satisfactory for evaluation; transformation zone present. INTERPRETATION: NEGATIVE FOR INTRAEPITHELIAL LESION OR MALIGNANCY. Electronically Signed Out By: Tram Walker CT(ASCP) The Pap test is a screening test primarily for squamous cancers and precursors and has associated false-negative and false-positive results. New technologies such as liquid-based preparations may decrease but will not eliminate all false-negative results. Regular sampling and follow-up of unexplained clinical signs and symptoms are recommended to minimize false negative results. PROCEDURES/ADDENDA HPV Testing (Requested) Ordered Date: 05/17/2021 A. PAP SMEAR (SUREPATH) CE: Human Papilloma Virus Test Negative for high-risk human papillomavirus types 16, 18, 45 and the Other high risk probe set (Includes 31, 33, 35, 39, 51, 52, 56, 58, 59, 66, 68) by [employer] Onclarity HR-HPV analysis. Clinical correlation is advised. This HPV test was performed at [facility], [address] [place] [address]. This test has been FDA approved for SurePath cervical cytology specimens. The accuracy and precision of this test for all other specimen sources has been verified in the Cytopathology Laboratory of the [facility] and has not been cleared or approved by the U.S. Food and Drug Administration. Clinical correlation is advised. CLINICAL HISTORY Date of Last Menstrual Period: Not Provided Menstrual History: Post Menopausal Other Clinical Conditions: Screening Pap SPECIMEN SOURCE A: PAP SMEAR (SUREPATH) CE Patient Name: ARELY GASTELUM : 1955 (Age: 66) Sex: F Institution: [facility] Location: [facility] Date of Collection: 05/16/2021 Date of Reported: 05/21/2021 15:49 Results to: Amy Callahan MD, [facility], B Amy Callahan MD CYTOLOGY ORDERABLES Final Res ult SEE NARRATIVE * (ABNORMAL) Glucose (04/22/2019 10:15 AM EST) GLUCOSE 121(H) 70 - 99 mg/dL [facility] Blood 04/22/2019 10:1 5 AM EST 04/22/2019 10:17 AM EST us Pasquale Hawthorne MD LAB BLOOD ORDERABLES Final R esult [facility] [address] [place] [address] * COLONOSCOPY FOR RESULT ENTRY ONLY (10/07/2018) Colonoscopy vmg us Historical Provider MD HEALTH MAINTENANCE Final Result from Last 3 Months or Most Recently Relevant to Health Maintenance [place] [address] MEDICARE PPO BLUE REPLACEMENT [facility] MEDICARE PPO BLUE REPLACEMENT [facility] MEDICARE PPO [address] [address] [place] [address] MEDICARE PPO BLUE [place]PL[place] [address] MEDICARE PPO BLUE [place] [address] MEDICARE PPO BLUE REPLACEMENT Advance Directives For more information, please contact: [phone] (9AM - 5PM [facility], Thursday-Thursday) Documents on File Type Date Recorded 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 Packing Clerk Expl anation Healthcare Proxy 12/03/2022 12:25 PM * Full Code (Latest Code Status on File) Date Activated Date Inactivated Comments 12/02/2022 12:49 PM Question Answer Comments Code Status Confirmed With: Patient Care Teams Well Drill Operator Cable Tool Relationship Specialty Start Date End Date Amy Callahan MD [address] [place] [address] [email or web address] PCP - General Internal Medicine 10/21/18 Ant Alcantar MD [address] [place] [address] [email or web address] Historical LMR Provider 02/09/17 Amy Callahan MD [address] [place] [address] [email or web address] Historical LMR Provider 02/09/17 Jesus Manuel Damno MD [address] [place] [address] Dr [address]nd Sandee BOLAÑOSJACOBO JOSE LUIS [address] [email or web address] Historical LMR Provider 10/07/18 Additional Source Comments The information contained in this document represents components of the legal health record. It is not the complete legal health record.[facility]
--- OUTSIDE RECORDS SUMMARY | 2025-01-27 11:04 | XMS_ITS | Encounter Summary ---
Author Organization [facility] Address [address] [place] [address] Phone Care Team Providers Care Strategic Procurement Manager Name Role Phone Ant Alcantar MD Unavailable [phone] Amy Callahan MD Unavailable [phone] Jesus Manuel Damon MD Unavailable [phone] Amy Callahan MD Primary Care Provider [phone] Encounter Details Date Type Department Care Team (Late st Contact Info) Description 09/28/2023 Procedure [facility], [address] [place] [address] Social History Tobacco Use Types Packs/Day Years [...] high school, GED, job training, learning the French language, technical skills, or developing parenting skills)? [...] EDT Office Visit [facility] [address] [place] [address] [place] [address] Amy Callahan MD [address] [place] [address], [address] [place] [address] [email or web address] documented as of this encounter Visit Diagnoses Not on filedocumented in this encounter Additional Health Concerns Assessment Noted Time PHQ-2 Depression Total Score: 0 05/20/19 23 1:15 PM EST documented as of this encounter Care Teams Strategic Procurement Manager Relationship Specialty Start Date End Date Amy Callahan MD [address] [place] [address] [email or web address] PCP - General Internal Medicine 10/21/18 Ant Alcantar MD [address] [place] [address] [email or web address] Historical LMR Provider 02/09/17 Amy Callahan MD [address] [place] [address] [email or web address] Historical LMR Provider 02/09/17 Jesus Manuel Damon MD [address] [place] [address] [email or web address] Historical LMR Provider 10/07/18 documented as of this encounter Additional Source Comments The information contained in this document represents components of the legal health record. It is not the complete legal health record.[facility]
--- OUTSIDE RECORDS SUMMARY | 2025-01-27 11:04 | XMS_ITS | Encounter Summary ---
Author Organization [facility] Address [address] [facility] [address] [place] [address] Phone Care Team Providers Care Animal Physiologist Name Role Phone Milad Beasley MD Unavailable + Ant Alcantar MD Unavailable Amy Callahan MD Unavailable [phone] Jesus Manuel Damon MD Unavailable Froy Gastelum MD Unavailable [phone] Amy Callahan A Primary Care Provider [phone] Jesus Manuel Damon MD Primary Care Provider + Amy Callahan A Primary Care Provider [phone] Encounter Details Date Type Department Care Team (Late Contact Info) Description 02/19/2017 Ancillary Orders [facility] [address] [place] [address] [place] [address] Amy Callahan MD [address] [place] [address], 2nd [place] [address] Visit for screening mammogram Social History Tobacco Use Types Packs/Day Years Used Date Smoking Tobacco: Never Assessed Comments Unknown Sex and Gender Information Value Date Recorded Sex Assigned at Not on file Legal Sex Female 9:52 PM EDT Gender Identity Not on file Sexual Orientation Not on file documented as of this encounter Plan of Treatment Upcoming Encounters Date Type Department Care Team (Late st Contact Info) Description 08/29/2025 2:30 PM EDT Office Visit [facility] [address] [place] [address] Amy Callahan MD [address] [facility], 2nd [place] [address] [email or web address] documented as of this encounter Results * (ABNORMAL) BI MAMMOGRAM SCREENING WITH TOMOSYNTHESIS WITH CAD (BILATERAL) (03/12/2017 10:55 AM EST) Anatomical Region Laterality Modality Breast Left, Breast Right, Breast Bilateral Bila teral Mammography 03/12/2017 12:2 9 PM EST Impressions 03/12/2017 1:23 PM EST Questionable developing density in the upper outer aspect of the central right breast seen on only one view. This may just be superimposition artifact. The patient is being recalled for additional views and ultrasound if necessary. No other suspicious changes in either breast. Additional views: 3-D spot right MLO, 3-D non-spot right true lateral, 3-D non- spot laterally-exaggerated right cc. BI-RADS CATEGORY: 0 - Incomplete. Need additional imaging evaluation. DENSITY: There are scattered fibroglandular densities. LEFT RECOMMENDATION DATE: Annual Mammography Screening RIGHT RECOMMENDATION DATE: 1 Month Additional Imaging POS [email or web address] Edited by: Kayleen Sneed on 03/12/2017 12:48 PM Narrative 03/12/2017 1:23 PM EST COMPARISON: 04/24/2011 through 08/23/2015. Bilateral 3-D tomosynthesis with 2-D reconstructions in the CC and MLO projection of each breast was obtained. Computer-aided detection system also utilized. The tomosynthesis images of the right MLO view show a questionable developing 7- 8 mm density in the central right breast slightly above and lateral to the midline. This may just be a superimposition artifact; it has no correlate on the CC view. The patient will be recalled for additional views and ultrasound if needed for further evaluation. Otherwise the overall appearance of the breasts is unchanged. No other new mass, asymmetry, calcifications, or skin findings of concern have become apparent. Procedure Note Jesus Manuel Lubin MD - 03/12/2017 COMPARISON: 04/24/2011 through 08/23/2015. Bilateral 3-D tomosynthesis with 2-D reconstructions in the CC and MLOprojection of each breast was obtained. Computer-aided detection systemalso utilized. The tomosynthesis images of the right MLO view show a questionabledeveloping 7-8 mm density in the central right breast slightly above andlateral to the midline. This may just be a superimposition artifact; ithas no correlate on the CC view. The patient will be recalled foradditional views and ultrasound if needed for further evaluation. Otherwise the overall appearance of the breasts is unchanged. No other newmass, asymmetry, calcifications, or skin findings of concern have becomeapparent. IMPRESSION: Questionable developing density in the upper outer aspect of the centralright breast seen on only one view. This may just be superimpositionartifact. The patient is being recalled for additional views andultrasound if necessary. No other suspicious changes in either breast. Additional views: 3-D spot right MLO, 3-D non-spot right true lateral, 3-Dnon-spot laterally-exaggerated right cc. BI-RADS CATEGORY: 0 - Incomplete. Need additional imaging evaluation. DENSITY: There are scattered fibroglandular densities. LEFT RECOMMENDATION DATE: Annual Mammography Screening RIGHT RECOMMENDATION DATE: 1 Month Additional Imaging POS CDHMAMA Edited by: Kayleen Sneed on 03/12/2017 12:48 PM Amy Callahan MD IMG MG EXAMS Final Result documented in this encounter Visit Diagnoses Diagnosis Visit for screening mammogram Visit for screening mammogram documented in this encounter Additional Health Concerns Infection Onset Date Last Indicated Resolved Time CoV-Risk 03/14/2020 03/15/2020 03/28/2020 1:24 AM EST documented as of this encounter Care Teams Animal Physiologist Relationship Specialty Start Date End Date Amy Callahan MD [address] [place] [address], 2nd [place] [address] PCP - General 02/10/17 10/06/18 Jesus Manuel Damon MD [address] [place] [address] [email or web address] PCP - General Family Medicine 10/07/18 10/20/18 Amy Callahan MD [address] [place] [address] PCP - General Internal Medicine 10/21/18 Milad Beasley MD [address] [place] [address] [email or web address] Historical LMR Provider 02/09/17 05/04/21 Ant Alcantar MD [address] [place] [address] Historical LMR Provider 02/09/17 Amy Callahan MD [address] [place] [address] Historical LMR Provider 02/09/17 Jesus Manuel Damon MD [address] [place] [address] [email or web address] Historical LMR Provider 10/07/18 Froy Gastelum MD [address] [place] [address] Historical LMR Provider 02/09/17 documented as of this encounter Additional Source Comments The information contained in this document represents components of the legal health record. It is not the complete legal health record.[facility]
--- OUTSIDE RECORDS SUMMARY | 2025-01-27 11:04 | XMS_ITS | Encounter Summary ---
Author Organization [facility] Address [address] [place] [address] Phone Care Team Providers Care Institutional Cook Name Role Phone Milad Beasley MD Unavailable + Ant Alcantar MD Unavailable [phone] Amy Callahan MD Unavailable [phone] Jesus Manuel Damon MD Unavailable Froy Gastelum MD Unavailable [phone] Amy Callahan MD Primary Care Provider [phone] Encounter Details Date Type Department Care Team (Late st Contact Info) Description 04/11/2019 Transcribe Orders [facility] [place] [address] Pasquale Hawthorne MD [address] [place] [address], [address] [place] [address] [email or web address] Social History Tobacco Use Types Packs/Day Years [...] EDT Office Visit [facility] [address] [place] [address] [place] [address] Amy Callahan MD [address] [place] [address] [email or web address] documented as of this encounter Visit Diagnoses Not on filedocumented in this encounter Additional Health Concerns Infection Onset Date Last Indicated Resolved Time CoV-Risk 03/14/2020 03/15/2020 03/28/2020 1:24 AM EST Assessment Noted Time PHQ-2 Depression Total Score: 0 04/29/19 2:47 PM EST documented as of this encounter Care Teams Institutional Cook Relationship Specialty Start Date End Date Amy Callahan MD [address] [place] [address] PCP - General Internal Medicine 10/21/18 Milad Beasley MD [address] [place] [phone] [email or web address] Historical LMR Provider 02/09/17 05/04/21 Ant Alcantar MD [address] [place] [address] Historical LMR Provider 02/09/17 Amy Callahan MD [address] [place] [address] Historical LMR Provider 02/09/17 Jesus Manuel Damon MD [address] [place] [address] [place] [address] [place] [address] [email or web address] Historical LMR Provider 10/07/18 Froy Gastelum MD [address] [place] [address] Historical LMR Provider 02/09/17 documented as of this encounter Additional Source Comments The information contained in this document represents components of the legal health record. It is not the complete legal health record.[facility]
--- OUTSIDE RECORDS SUMMARY | 2025-01-27 11:04 | XMS_ITS | Encounter Summary ---
Author Organization [facility] Address [address] [place] [address] Phone Care Team Providers Care Deliverer Outside Name Role Phone Milad Beasley MD Unavailable + Ant Alcantar MD Unavailable [phone] Amy Callahan MD Unavailable [phone] Jesus Manuel Damon MD Unavailable [phone] Froy Gastelum MD Unavailable [phone] Amy Callahan MD Primary Care Provider [phone] Encounter Details Date Type Department Care Team (Latest Contact Info) Description 03/07/2019 Transcribe Orders [address] [place] [address] Pasquale Hawthorne MD [address] [place] [address], [address] [place], [place] [phone] [email or web address] Numbness (Primary Dx); Weakness Social History Tobacco Use Types Packs/Day Years [...] Description 08/29/2025 2:30 PM EDT Office Visit [facility] [address] [place] [address] Dr [place] JOSE LUIS [address] Amy Callahan MD [address] [place] [address], [address] [place] [address] [email or web address] documented as of this encounter Results * Vitamin B12 (03/07/2019 8:46 AM EST) Pathologist [facility] VITAMIN B12 377 232 - 1,245 pg/mL [facility] Blood 03/07/2019 8:46 AM EST 03/07/2019 8:52 AM EST us Pasquale Hawthorne MD LAB BLOOD ORDERABLES Final R esult [facility] [address] [place] [address] * (ABNORMAL) Monoclonal protein study, serum (03/07/2019 8:46 AM EST) Pathologist [facility] TOTAL PROTEIN 6.9 6.3 - 7.9 g/dL [facility] LAB MED/[address] [place] [address] ALBUMIN 3.7 3.4 - 4.7 g/dL [facility] [place] [address] ALPHA-1 GLOBULIN 0.2 0.1 - 0.3 g/dL [facility] DR ALPHA-2 GLOBULIN 1.1(H) 0.6 - 1.0 g/dL [facility]/[address] [place] [address] BETA-GLOBULIN 1.0 0.7 - 1.2 g/dL [facility]/[address] [place] [address] GAMMA-GLOBULIN 1.0 0.6 - 1.6 g/dL [facility] MED/[address] [place] A/G RATIO 1.19 [facility]/[address] [place] [address] Connolly SPIKE Test component not applicable or not reported. g/dL [facility] LAB [facility]/[address] [place] [address] Connolly SPIKE Test component not applicable or not reported. g/dL [facility] MED/[address] [place] [address] IMPRESSION SEE NOTE [facility] LAB MED/[facility] [place] Comment: (NOTE) No apparent monoclonal protein on serum electrophoresis. See Immunofixation. IMMUNOFIXATION No monoclonal protein detected. [facility] [place] Blood 03/07/2019 8:46 AM EST 03/07/2019 8:52 AM EST Pasquale Hawthorne MD LAB BLOOD ORDERABLES Final R esult Performing Organization Address City/[facility]/ZIP Co de Phone Number [facility] LAB MED/[address] [place] [address] * Sedimentation rate (ESR) (03/07/2019 8:46 AM EST) ESR 12 0 - 30 mm/h [facility] Blood 03/07/2019 8:46 AM EST 03/07/2019 8:52 AM EST Pasquale Hawthorne MD LAB BLOOD ORDERABLES Final R esult Performing Organization Address [facility] Co de Phone Number [address] [address] * (ABNORMAL) Lyme screen with reflex to Western blot, blood (03/07/2019 8:46 AM EST) Lyme AB IgG Negative Negative [facility] Lyme AB IgM Positive(A) Negative [facility] Comment:The Lyme Disease Ant ibody, Confirmation, Serum (Western Blot) has been reflexed. The results will follow. Blood 03/07/2019 8:46 AM EST 03/07/2019 8:52 AM EST Pasquale Hawthorne MD LAB BLOOD ORDERABLES Final R esult Performing Organization Address [facility] Co de Phone Number [address] [address] * (ABNORMAL) Glucose (03/07/2019 8:46 AM EST) GLUCOSE 119(H) 70 - 99 mg/dL [facility] Blood 03/07/2019 8:46 AM EST 03/07/2019 8:52 AM EST us Pasquale Hawthorne MD LAB BLOOD ORDERABLES Final R esult Performing Organization Address City/[facility] Co de Phone Number [address] [address] * CPK (creatine kinase) (03/07/2019 8:46 AM EST) CREATINE KINASE 109 21 - 215 U/L [facility] Blood 03/07/2019 8:46 AM EST 03/07/2019 8:52 AM EST us Pasquale Hawthorne MD LAB BLOOD ORDERABLES Final R esult Performing Organization Address [facility] Co de Phone Number [address] [address] * Antinuclear antibody (NITHIN) (03/07/2019 8:46 AM EST) NITHIN SCREEN ON HEP 2 Negative Negative [facility] Blood 03/07/2019 8:46 AM EST 03/07/2019 8:52 AM EST us Pasquale Hawthorne MD LAB BLOOD ORDERABLES Final R esult Performing Organization Address [facility] de Phone Number [address] [address] documented in this encounter Visit Diagnoses Diagnosis Numbness- Primary Disturbance of skin sensation Weakness Other malaise and fatigue documented in this encounter Additional Health Concerns Infection Onset Date Last Indicated Resolved Time CoV-Risk 03/14/2020 03/15/2020 03/28/2020 1:24 AM EST Assessment Noted Time PHQ-2 Depression Total Score: 0 04/29/19 2:47 PM EST documented as of this encounter Care Teams Deliverer Outside Relationship Specialty Start Date End Date Amy Callahan MD [address] [place] [address], [address] [place] [address] PCP - General Internal Medicine 10/21/18 Milad Beasley MD [address] [place] [address] [email or web address] Historical LMR Provider 02/09/17 05/04/21 Ant Alcantar MD [address] [place] [address] [email or web address] Historical LMR Provider 02/09/17 Amy Callahan MD [address] [place] [address] [email or web address] Historical LMR Provider 02/09/17 Jesus Manuel Damon MD [address] [place] [address] [email or web address] Historical LMR Provider 10/07/18 Froy Gastelum MD [address] [place] [address] Historical LMR Provider 02/09/17 documented as of this encounter Additional Source Comments The information contained in this document represents components of the legal health record. It is not the complete legal health record.[facility]
--- OUTSIDE RECORDS SUMMARY | 2025-01-27 11:04 | XMS_ITS | Encounter Summary ---
Author Organization [facility] Address [address] [facility] [address] [place] [address] Phone Care Team Providers Care Shipper Name Role Phone Milad Beasley MD Unavailable + Ant Alcantar MD Unavailable Amy Callahan MD Unavailable [phone] Jesus Manuel Damon MD Unavailable [phone] Froy Gastelum MD Unavailable [phone] Amy Callahan MD Primary Care Provider [phone] Encounter Details Date Type Department Care Team (Late st Contact Info) Description 04/06/2019 Ancillary Orders [facility] [address] [place] [address] [place] [address] Amy Callahan MD [address] [place] [address], 2nd [place] [address] [email or web address] Breast screening Social History Tobacco Use Types [...] 08/29/2025 2:30 PM EDT Office Visit [facility] [address] [place] [address] [place] [address] Amy Callahan MD [address] [place] [address], 2nd [place] [address] [email or web address] documented as of this encounter Results * BI MAMMOGRAM SCREENING WITH TOMOSYNTHESIS WITH CAD (BILATERAL) (04/07/2019 2:47 PM EST) Anatomical Region Laterality Modality Breast Left, Breast Right, Breast Bilateral Bila teral Mammography 04/07/2019 3:05 PM EST Impressions 04/07/2019 3:08 PM EST No mammographic evidence of malignancy. Recommend routine annual surveillance. BI-RADS CATEGORY: 1 - Negative. DENSITY: There are scattered fibroglandular densities. POS - CDHMAMA Narrative 04/07/2019 3:08 PM EST 64-year-old female with no current breast symptoms. Comparison made to previous on 04/01/2018 and as far back as 05/06/2012. Interpretation made in conjunction with computer-aided detection and tomosynthesis. There are scattered areas of fibroglandular density. There are no suspicious masses, areas of architectural distortion, or suspicious clusters of microcalcifications. Procedure Note Zach Ontiveros MD - 04/07/2019 64-year-old female with no current breast symptoms. Comparison made toprevious on 04/01/2018 and as far back as 05/06/2012. Interpretation madein conjunction with computer-aided detection and tomosynthesis. There are scattered areas of fibroglandular density. There are no suspicious masses, areas of architectural distortion, orsuspicious clusters of microcalcifications. IMPRESSION: No mammographic evidence of malignancy. Recommend routine annualsurveillance. BI-RADS CATEGORY: 1 - Negative. DENSITY: There are scattered fibroglandular densities. POS - CDHMAMA Amy Callahan MD IMG MG EXAMS Final [...] documented as of this encounter Care Teams Shipper Relationship Specialty Start Date End Date Amy Callahan MD [address] [place] [address] [email or web address] PCP - General Internal Medicine 10/21/18 Milad Beasley MD [address] [place] [address] [email or web address] Historical LMR Provider 02/09/17 05/04/21 Ant Alcantar MD [address] [place] [address] Historical LMR Provider 02/09/17 Amy Callahan MD [address] [place] [address] [email or web address] Historical LMR Provider 02/09/17 Jesus Manuel Damon MD [address] [place] [address] Historical LMR Provider 10/07/18 Froy Gastelum MD [address] [place] [address] Historical LMR Provider 02/09/17 documented as of this encounter Additional Source Comments The information contained in this document represents components of the legal health record. It is not the complete legal health record.[facility]
--- OUTSIDE RECORDS SUMMARY | 2025-01-27 11:04 | XMS_ITS | Encounter Summary ---
Author Organization [facility] Address [address] [place] [address] Phone Care Team Providers Care Gut Carrier Name Role Phone Milad Besaley MD Unavailable + Ant Alcantar MD Unavailable [phone] Amy Callahan MD Unavailable Jesus Manuel Damon MD Unavailable [phone] Froy Gastelum MD Unavailable [phone] Amy Callahan MD Primary Care Provider [phone] Reason for Referral * MRI/CAT Scan - Closed Specialty Diagnoses / Procedures Referred By Contmara garcia Referred To Contact Radiology Diagnoses Weakness of both legs Procedures MRI Cervical Spine Pasquale Hawthorne MD Phone: tel: fax: [email or web address] Referral ID Status Reason Start Date Expiration Date Visits Re quested Visits Authorized [id number] Closed 02/25/2019 04/26/2019 1 1 Encounter Details Date Type Department Care Team (Latest Contact Info) Description 02/25/2019 Transcribe Orders Virtual Department [address] [place] [address] Pasquale Hawthorne MD [address] [facility] [address] [place], [place] [id number] [email or web address] Weakness of both legs (Primary Dx) Social History Tobacco Use Types [...] Description 08/29/2025 2:30 PM EDT Office Visit [facility] [address] [place] [address] [place] [address] Amy Callahan MD [address] [place] [address], 2nd [place] [address] [email or web address] documented as of this encounter Results * MRI CERVICAL SPINE (NEURO) FOCUS WITHOUT CONTRAST (03/09/2019 9:45 AM EST) Anatomical Region Laterality Modality C-spine Magnetic Resonan ce 03/09/2019 9:47 AM EST Impressions 03/09/2019 9:51 AM EST Small left paramedian C5-6 disc bulge. No central canal or significant neural foraminal stenosis or discrete cord lesion apparent. POS - [id number] Narrative 03/09/2019 9:51 AM EST TECHNIQUE: Exam performed on a 1.5 Brianna high-field MRI scanner. Sagittal T1, T2 and STIR, axial T2* gradient echo and 3-D bright fluid sequences were obtained. FINDINGS: No comparison radiographs available. There is straightening of cervical lordosis. There is a small left paramedian disc bulge at the C5-6 level. No focal cervical disc protrusion, central canal stenosis, or significant neural foraminal compromise demonstrated. The T1-T2 and T2-3 disc levels are unremarkable in appearance on the sagittal sequences. No vertebral body compression deformity apparent. No discrete cord lesion or paraspinal soft tissue mass identified. Prevertebral soft tissues are not thickened. There are small cystic foci in the thyroid lobes. Procedure Note Zofia Welch MD - 03/09/2019 TECHNIQUE: Exam performed on a 1.5 Brianna high-field MRI scanner. SagittalT1, T2 and STIR, axial T2* gradient echo and 3-D bright fluid sequenceswere obtained. FINDINGS: No comparison radiographs available. There is straightening of cervicallordosis. There is a small left paramedian disc bulge at the C5-6 level.No focal cervical disc protrusion, central canal stenosis, or significantneural foraminal compromise demonstrated. The T1-T2 and T2-3 disc levelsare unremarkable in appearance on the sagittal sequences. No vertebral body compression deformity apparent. No discrete cord lesionor paraspinal soft tissue mass identified. Prevertebral soft tissues arenot thickened. There are small cystic foci in the thyroid lobes. IMPRESSION: Small left paramedian C5-6 disc bulge. No central canal or significantneural foraminal stenosis or discrete cord lesion apparent. POS - [id number] Pasquale Hawthorne MD IMG MR XSPECIALTY Final Resu lt documented in this encounter Visit Diagnoses Diagnosis Weakness of both legs- Primary Muscle weakness (generalized) Weakness of both legs Muscle weakness (generalized) documented in this encounter Additional Health Concerns Infection Onset Date Last Indicated Resolved Time CoV-Risk 03/14/2020 03/15/2020 03/28/2020 1:24 AM EST Assessment Noted Time PHQ-2 Depression Total Score: 0 04/29/19 2:47 PM EST documented as of this encounter Care Teams Gut Carrier Relationship Specialty Start Date End Date Amy Callahan MD [address] [place] [address], [address] [place] [address] PCP - General Internal Medicine 10/21/18 Milad Beasley MD [address] [place] [address] [email or web address] Historical LMR Provider 02/09/17 05/04/21 Ant Alcantar MD [address] [place] [address] [email or web address] Historical LMR Provider 02/09/17 Amy Callahan MD [address] [place] [address] [email or web address] Historical LMR Provider 02/09/17 Jesus Manuel Damon MD [address] [place] [address] [email or web address] Historical LMR Provider 10/07/18 Froy Gastelum MD [address] [place] [address] Historical LMR Provider 02/09/17 documented as of this encounter Additional Source Comments The information contained in this document represents components of the legal health record. It is not the complete legal health record.[facility]
--- OUTSIDE RECORDS SUMMARY | 2025-01-27 11:04 | XMS_ITS | Encounter Summary ---
Author Organization [facility] Address [address] [place] [address] Phone Care Team Providers Care Product Safety Expert Name Role Phone Milad Beasley MD Unavailable + Ant Alcantar MD Unavailable Amy Callahan MD Unavailable [phone] Jesus Manuel Damon MD Unavailable [phone] Froy Gastelum MD Unavailable [phone] Amy Callahan MD Primary Care Provider [phone] Reason for Referral * Physical Therapy (Routine) - Closed Specialty Diagnoses / Procedures Referred By Maryanne garcia Referred To Contact Physical Therapy Diagnoses Encounter for rehabilitation Pasquale Hawthorne MD Phone: tel: fax: [email or web address] [facility] [address] [place] [address] Phone: tel: Referral ID Status Reason Start Date Expiration Date Visits Re quested Visits Authorized [id number] Closed 04/11/2019 04/11/2020 1 1 Encounter Details Date Type Department Care Team (Latest Contact Info) Description 04/11/2019 Transcribe Orders [facility] [address] [place] [address] Pasquale Hawthorne MD [address] [place] [address], [address] [place] [address] [email or web address] Encounter for rehabilitation (Primary Dx) Social History Tobacco Use Types [...] 08/29/2025 2:30 PM EDT Office Visit [facility] [address] [place] [address] [place] [address] Amy Callahan MD [address] [place] [address] [email or web address] Scheduled Referrals Name Type Priority Associated Diagnoses Orde r Schedule Ambulatory referral to [facility] Physical Therapy Outpatient Referral Routine Encounter for rehabilitation Ordered: 04/11/2019 documented as of this encounter Visit Diagnoses Diagnosis Encounter for rehabilitation- Primary documented in this encounter Additional Health Concerns Infection Onset Date Last Indicated Resolved Time CoV-Risk 03/14/2020 03/15/2020 03/28/2020 1:24 AM EST Assessment Noted Time PHQ-2 Depression Total Score: 0 04/29/19 2:47 PM EST documented as of this encounter Care Teams Product Safety Expert Relationship Specialty Start Date End Date Amy Callahan MD [address] [place] [address] [email or web address] PCP - General Internal Medicine 10/21/18 Milad Beasley MD [address] [place] [address] [email or web address] Historical LMR Provider 02/09/17 05/04/21 Ant Alcantar MD [address] [place] [address] [email or web address] Historical LMR Provider 02/09/17 Amy Callahan MD [address] [place] [address] [email or web address] Historical LMR Provider 02/09/17 Jesus Manuel Damon MD [address] [place] [address] [email or web address] Historical LMR Provider 10/07/18 Froy Gastelum MD [address] [place] [address] Historical LMR Provider 02/09/17 documented as of this encounter Additional Source Comments The information contained in this document represents components of the legal health record. It is not the complete legal health record.[facility]
--- OUTSIDE RECORDS SUMMARY | 2025-01-27 11:04 | XMS_ITS | Encounter Summary ---
Author Organization [facility] Address [address] [facility] [address] [place] [address] Phone Care Team Providers Care Establishment Guide Name Role Phone Milad Beasley MD Unavailable + Ant Alcantar MD Unavailable [phone] Amy Callahan MD Unavailable Jesus Manuel Damon MD Unavailable Froy Gastelum MD Unavailable [phone] Amy Callahan MD Primary Care Provider [phone] Encounter Details Date Type Department Care Team (Late st Contact Info) Description 03/26/2020 Ancillary Orders [facility] [address] [place] [address] [place] [address] Amy Callahan MD [address] [place] [address], 2nd [place] [address] [email or web address] Breast screening Social History Tobacco Use Types [...] EDT Office Visit [facility] [address] [place] [address] [place] [address] Amy Callahan MD [address] [place] [address], [address] [place] [address] [email or web address] documented as of this encounter Results * BI MAMMOGRAM SCREENING WITH TOMOSYNTHESIS WITH CAD (BILATERAL) (04/24/2020 2:31 PM EST) Anatomical Region Laterality Modality Breast Left, Breast Right, Breast Bilateral Bila teral Mammography 04/24/2020 2:38 PM EST Impressions 04/24/2020 2:40 PM EST No mammographic evidence of malignancy. Recommend routine annual surveillance. BI-RADS CATEGORY: 1 - Negative. DENSITY: There are scattered fibroglandular densities. Narrative 04/24/2020 2:40 PM EST 65-year-old female with no current breast symptoms. Comparison made to previous on 04/07/2019 and as far back as 06/16/2013. Interpretation made in conjunction with computer-aided detection and tomosynthesis. There are scattered areas of fibroglandular density. There are no suspicious masses, areas of architectural distortion, or suspicious clusters of microcalcifications. Procedure Note Sachin Herron MD - 04/24/2020 65-year-old female with no current breast symptoms. Comparison made toprevious on 04/07/2019 and as far back as 06/16/2013. Interpretation madein conjunction with computer-aided detection and tomosynthesis. There are scattered areas of fibroglandular density. There are no suspicious masses, areas of architectural distortion, orsuspicious clusters of microcalcifications. IMPRESSION: No mammographic evidence of malignancy. Recommend routine annualsurveillance. BI-RADS CATEGORY: 1 - Negative. DENSITY: There are scattered fibroglandular densities. us Amy Callahan MD IMG MG EXAMS [...] documented as of this encounter Care Teams Establishment Guide Relationship Specialty Start Date End Date Amy Callahan MD [address] [place] [address] PCP - General Internal Medicine 10/21/18 Milad Beasley MD [address] [place] [address] [email or web address] Historical LMR Provider 02/09/17 05/04/21 Ant Alcantar MD [address] [place] [address] Historical LMR Provider 02/09/17 Amy Callahan MD [address] [place] [address] Historical LMR Provider 02/09/17 Jesus Manuel Damon MD [address] [place] [address] Historical LMR Provider 10/07/18 Froy Gastelum MD [address] [place] [address] Historical LMR Provider 02/09/17 documented as of this encounter Additional Source Comments The information contained in this document represents components of the legal health record. It is not the complete legal health record.[facility]
--- OUTSIDE RECORDS SUMMARY | 2025-01-27 11:04 | XMS_ITS | Encounter Summary ---
Author Organization [facility] Address [address] [place] [address] [place] [address] Phone Care Team Providers Care Senior Corporate Recruiter Name Role Phone Milad Beasley MD Unavailable + Ant Alcantar MD Unavailable [phone] Amy Callahan MD Unavailable [phone] Jesus Manuel Damon MD Unavailable [phone] Froy Gastelum MD Unavailable [phone] Amy Callahan MD Primary Care Provider [phone] Encounter Details Date Type Department Care Team (Late st Contact Info) Description 03/26/2020 Procedure Pass [facility] - [address] [place] [address] Social History Tobacco Use Types Packs/Day Years [...] Description 08/29/2025 2:30 PM EDT Office Visit [facility] [address] [place] [address] [place] [address] Amy Callahan MD [address] [address] [email or web address] documented as of this encounter Visit Diagnoses Not on filedocumented in this encounter Additional Health Concerns Infection Onset Date Last Indicated Resolved Time CoV-Risk 03/14/2020 03/15/2020 03/28/2020 1:24 AM EST Assessment Noted Time PHQ-2 Depression Total Score: 0 05/05/19 20 2:41 PM EST documented as of this encounter Care Teams Senior Corporate Recruiter Relationship Specialty Start Date End Date Amy Callahan MD [address] [place] [address] [email or web address] PCP - General Internal Medicine 10/21/18 Milad Beasley MD [address] [place] [address] [email or web address] Historical LMR Provider 02/09/17 05/04/21 Ant Alcantar MD [address] [place] [address] [email or web address] Historical LMR Provider 02/09/17 Amy Callahan MD [address] [place] [address] [email or web address] Historical LMR Provider 02/09/17 Jesus Manuel Damon MD [address] [place] [address] [email or web address] Historical LMR Provider 10/07/18 Froy Gastelum MD [address] [place] [address] Historical LMR Provider 02/09/17 documented as of this encounter Additional Source Comments The information contained in this document represents components of the legal health record. It is not the complete legal health record.[facility]
--- OUTSIDE RECORDS SUMMARY | 2025-01-27 11:04 | XMS_ITS | Encounter Summary ---
Author Organization [facility] Address [address] [facility] [address] [place] [address] Phone Care Team Providers Care Trailer Tank Truck Driver Name Role Phone Milad Beasley MD Unavailable + Ant Alcantar MD Unavailable Amy Callahan MD Unavailable [phone] Jesus Manuel Damon MD Unavailable [phone] Froy Gastelum MD Unavailable [phone] Amy Callahan A Primary Care Provider Jesus Manuel Damon MD Primary Care Provider + Amy Callahan A Primary Care Provider [phone] Encounter Details Date Type Department Care Team (Late st Contact Info) Description 2017 Ancillary Orders [facility] [address] [place] [address] [place] [address] Amy Callahan MD [address] [facility], 2nd [place] [address] [email or web address] Abnormal mammogram of right breast Social History Tobacco Use Types Packs/Day Years Used Date Smoking Tobacco: Never Assessed Comments No Sex and Gender Information Value Date Recorded Sex Assigned at Not on file Legal Sex Female 9:52 PM EDT Gender Identity Not on file Sexual Orientation Not on file documented as of this encounter Plan of Treatment Upcoming Encounters Date Type Department Care Team (Late st Contact Info) Description 08/29/2025 2:30 PM EDT Office Visit [facility] [address] [place] [address] Amy Callahan MD [address] [place] [address], [address] [place] [address] [email or web address] Scheduled Orders Name Type Priority Associated Diagnoses Orde r Schedule US Breast (Right) Imaging Routine Abnormal mammogram of right breast Expected: 2017, Expires: 2019 documented as of this encounter Results * BI MAMMOGRAM DIAGNOSTIC WITH TOMOSYNTHESIS WITH CAD (RIGHT) (03/26/2017 2:02 PM EST) Anatomical Region Laterality Modality Breast Right, Breast Bilateral Right M ammography 03/26/2017 2:15 PM EST Impressions 03/26/2017 2:22 PM EST No findings suspicious for malignancy. Annual mammographic screening recommended. The results were given to the patient by the technologist at the time of the examination. BI-RADS CATEGORY: 2 - Benign finding. POS - CDHMAMA Narrative 03/26/2017 2:22 PM EST HISTORY: Abnormal right screening mammogram. EXAM: Unilateral right diagnostic mammography with 3-D tomography. COMPARISON: Previous right mammograms as far back as 04/24/2011 and is recent as 03/12/2017. FINDINGS: The asymmetry in the upper aspect of the right breast on 03/12/2017 does not persist on additional mammographic images and is consistent with superimposed fibroid or tissue. No evidence of an underlying mass or architectural distortion. Procedure Note Ramakrishna Minaya MD - 03/26/2017 HISTORY: Abnormal right screening mammogram. EXAM: Unilateral right diagnostic mammography with 3-D tomography. COMPARISON: Previous right mammograms as far back as 04/24/2011 and isrecent as 03/12/2017. FINDINGS: The asymmetry in the upper aspect of the right breast on03/12/2017 does not persist on additional mammographic images and isconsistent with superimposed fibroid or tissue. No evidence of anunderlying mass or architectural distortion. IMPRESSION: No findings suspicious for malignancy. Annual mammographic screeningrecommended. The results were given to the patient by the technologist at the time ofthe examination. BI-RADS CATEGORY: 2 - Benign finding. POS - CDHMAMA us Amy Callahan MD IMG MG EXAMS Final Result documented in this encounter Visit Diagnoses Diagnosis Abnormal mammogram of right breast Abnormal mammogram of right breast documented in this encounter Additional Health Concerns Infection Onset Date Last Indicated Resolved Time CoV-Risk 03/14/2020 03/15/2020 03/28/2020 1:24 AM EST documented as of this encounter Care Teams Trailer Tank Truck Driver Relationship Specialty Start Date End Date Amy Callahan MD [address] [place] [address] [email or web address] PCP - General 02/10/17 10/06/18 Jesus Manuel Damon MD [address] [place] [address] [email or web address] PCP - General Family Medicine 10/07/18 10/20/18 Amy Callahan MD [address] [place] [address] [email or web address] PCP - General Internal Medicine 10/21/18 Milad Beasley MD [address] [place] [address] [email or web address] Historical LMR Provider 02/09/17 05/04/21 Ant Alcantar MD [address] [place] [address] [email or web address] Historical LMR Provider 02/09/17 Amy Callahan MD [address] [place] [address] [email or web address] Historical LMR Provider 02/09/17 Jesus Manuel Damon MD [address] [place] [address] [email or web address] Historical LMR Provider 10/07/18 Froy Gastelum MD [address] [place] [address] Historical LMR Provider 02/09/17 documented as of this encounter Additional Source Comments The information contained in this document represents components of the legal health record. It is not the complete legal health record.[facility]
--- OUTSIDE RECORDS SUMMARY | 2025-01-27 11:04 | XMS_ITS | Encounter Summary ---
Author Organization [facility] Address [address] [place] [address] Phone Care Team Providers Care Hotel Service Supervisor Name Role Phone Milad Beasley MD Unavailable + Ant Alcantar MD Unavailable Amy Callahan MD Unavailable [phone] Jesus Manuel Damon MD Unavailable Froy Gastelum MD Unavailable [phone] Amy Callahan MD Primary Care Provider [phone] Encounter Details Date Type Department Care Team (Late st Contact Info) Description 04/11/2019 Transcribe Orders [facility] [place] [address] Pasquale Hawthorne MD [address] [place] [address], [address] [place] [address] [email or web address] Social History Tobacco Use Types Packs/Day [...] EDT Office Visit [facility] [address] [place] [address] [place] [address] Amy Callahan MD [address] [place] [address] [email or web address] documented as of this encounter Visit Diagnoses Not on filedocumented in this encounter Additional Health Concerns Infection Onset Date Last Indicated Resolved Time CoV-Risk 03/14/2020 03/15/2020 03/28/2020 1:24 AM EST Assessment Noted Time PHQ-2 Depression Total Score: 0 04/29/19 2:47 PM EST documented as of this encounter Care Teams Hotel Service Supervisor Relationship Specialty Start Date End Date Aym Callahan MD [address] [place] [address] PCP - General Internal Medicine 10/21/18 Milad Beasley MD [address] [place] [address] [email or web address] Historical LMR Provider 02/09/17 05/04/21 Ant Alcantar MD [address] [place] [address] Historical LMR Provider 02/09/17 Amy Callahan MD [address] [place] [address] Historical LMR Provider 02/09/17 Jesus Manuel Damon MD [address] [place] [address] [place] [address] [place] [address] [email or web address] Historical LMR Provider 10/07/18 Froy Gastelum MD [address] [place] [address] Historical LMR Provider 02/09/17 documented as of this encounter Additional Source Comments The information contained in this document represents components of the legal health record. It is not the complete legal health record.[facility]
--- OUTSIDE RECORDS SUMMARY | 2025-01-27 11:04 | XMS_ITS | Encounter Summary ---
Author Organization [facility] Address [address] [place] [address] [place] [address] Phone Care Team Providers Care Extrusion Die Repairer Name Role Phone Milad Beasley MD Unavailable + Ant Alcantar MD Unavailable [phone] Amy Callahan MD Unavailable [phone] Jesus Manuel Damon MD Unavailable [phone] Froy Gastelum MD Unavailable [phone] Amy Callahan MD Primary Care Provider [phone] Encounter Details Date Type Department Care Team (Late st Contact Info) Description 02/25/2019 Procedure Pass [address] [place] [address] Social History Tobacco Use Types Packs/Day Years [...] Description 08/29/2025 2:30 PM EDT Office Visit [facility] [address] [place] [address] [place] [address] Amy Callahan MD [address] [place], [place] [address] [address] [email or web address] documented as of this encounter Visit Diagnoses Not on filedocumented in this encounter Additional Health Concerns Infection Onset Date Last Indicated Resolved Time CoV-Risk 03/14/2020 03/15/2020 03/28/2020 1:24 AM EST Assessment Noted Time PHQ-2 Depression Total Score: 0 04/29/19 2:47 PM EST documented as of this encounter Care Teams Extrusion Die Repairer Relationship Specialty Start Date End Date Amy Callahan MD [address] [place] [address] [email or web address] PCP - General Internal Medicine 10/21/18 Milad Beasley MD [address] [place] [address] [email or web address] Historical LMR Provider 02/09/17 05/04/21 Ant Alcantar MD [address] [place] [address] [email or web address] Historical LMR Provider 02/09/17 Amy Callahan MD [address] [place] [address] [email or web address] Historical LMR Provider 02/09/17 Jesus Manuel Damon MD [address] [place] [address] [email or web address] Historical LMR Provider 10/07/18 Froy Gastelum MD [address] [place] [address] Historical LMR Provider 02/09/17 documented as of this encounter Additional Source Comments The information contained in this document represents components of the legal health record. It is not the complete legal health record.[facility]
--- OUTSIDE RECORDS SUMMARY | 2025-01-27 11:05 | XMS_ITS | Encounter Summary ---
Author Organization [facility] Address [address] [place] [address] Phone Care Team Providers Care Machine Sole Leveler Name Role Phone Ant Alcantar MD Unavailable Amy Callahan MD Unavailable [phone] Jesus Manuel Damon MD Unavailable [phone] Amy Callahan MD Primary Care Provider [phone] Reason for Referral * MRI/CAT Scan - Closed Specialty Diagnoses / Procedures Referred By Contac t Referred To Contact Radiology Diagnoses Spinal stenosis, lumbar region with neurogenic claudication Procedures MRI Lumbar Spine CHG MRI, LUMBAR SPINE CHG MRI, LUMBAR SPINE COMBO CHG MRI, LUMBAR SPINE CONTRAST Pasquale Vo DO [address] [place] [address] Phone: tel: fax: [email or web address] Referral ID Status Reason Start Date Expiration Date Visits Re quested Visits Authorized [id number] Closed 12/22/2024 02/18/2025 1 1 Encounter Details Date Type Department Care Team (Latest Contact Info) Description 12/22/2024 Transcribe Orders Virtual Department [address] [place] [address] Pasquale Vo DO [address] [place] [address] [email or web address] Spinal stenosis, lumbar region with neurogenic claudication (Primary Dx) Social History Tobacco Use Types [...] your housing situation today? I have anusha sing 07/27/2024 How many times have you move [...] Description 08/29/2025 2:30 PM EDT Office Visit [facility] [address] [place] [address] [place] [address] Amy Callahan MD [address] [place] [address], 2nd [place] [address] [email or web address] documented as of this encounter Results * MRI LUMBAR SPINE (NEURO) WITHOUT [...] left bilateral subarticular disc protrusions, resulting in sevg-sn-mocmqhqr spinal canal stenosis and moderate bilateral neural foramina narrowing. Overall, degenerative disc disease changes appear similar compared to prior study. L3-L4: There is diffuse disc bulge with bilateral facet hypertrophy and ligamentum flavum thickening, resulting in siqt-du-cbbgejzi spinal canal stenosis and moderate bilateral neural [...] L4 on L5, unchanged. There is chronic M6qzxinbkbszi fracture with 30% vertebral body height loss, unchanged.Vertebral body heights are otherwise maintained without evidence of acutecompression fracture. Marrow: No focal aggressive osseous lesions are identified. There is mildbone marrow edema involving the right L4-L5 facet joint and right P7tvmyamg, appear similar compared to prior study. Discs [...] and leftbilateral subarticular disc protrusions, resulting in lbqh-ma-ekatubxtyovvdq canal stenosis and moderate bilateral neural foramina narrowing.Overall, degenerative disc disease changes appear similar compared [facility]. L3-L4: There is diffuse disc bulge with bilateral facet hypertrophy andligamentum flavum thickening, resulting in hpuz-tm-dthazuum spinal canalstenosis and moderate bilateral neural foramina [...] DO IMG MR XSPECIALTY Final Resu lt documented in this encounter Visit Diagnoses Diagnosis Spinal stenosis, lumbar region with neurogenic claudication- Primary Spinal stenosis, lumbar region with neurogenic claudication documented in this encounter Additional Health Concerns Assessment Noted Time PHQ-2 Depression Total Score: 0 07/28/19 10:26 AM EDT documented as of this encounter Care Teams Machine Sole Leveler Relationship Specialty Start Date End Date Amy Callahan MD [address] [place] [address] PCP - General Internal Medicine 10/21/18 Ant Alcantar MD [address] [place] [address] Historical LMR Provider 02/09/17 Amy Callahan MD [address] [place] [address] Historical LMR Provider 02/09/17 Jesus Manuel Damon MD [address] [place] [address] Historical LMR Provider 10/07/18 documented as of this encounter Additional Source Comments The information contained in this document represents components of the legal health record. It is not the complete legal health record.[facility]
--- OUTSIDE RECORDS SUMMARY | 2025-01-27 11:05 | XMS_ITS | Encounter Summary ---
Author Organization [facility] Address [address] [place] [address] [place] [address] Phone Care Team Providers Care Associate School Psychologist Name Role Phone Ant Alcantar MD Unavailable [phone] Amy Callahan MD Unavailable [phone] Jesus Manuel Damon MD Unavailable [phone] Amy Callahan MD Primary Care Provider [phone] Encounter Details Date Type Department Care Team (Late st Contact Info) Description 12/22/2024 Procedure Pass [facility], [address] [id number] Social History Tobacco Use Types Packs/Day Years [...] EDT Office Visit [facility] [address] [place] [address] [place] [address] Amy Callahan MD [address] [place] [address], [address] [place] [address] [email or web address] documented as of this encounter Visit Diagnoses Not on filedocumented in this encounter Additional Health Concerns Assessment Noted Time PHQ-2 Depression Total Score: 0 07/28/19 25 10:26 AM EDT documented as of this encounter Care Teams Associate School Psychologist Relationship Specialty Start Date End Date Amy Callahan MD [address] [place] [address] [email or web address] PCP - General Internal Medicine 10/21/18 Ant Alcantar MD [address] [place] [address] [email or web address] Historical LMR Provider 02/09/17 Amy Callahan MD [address] [place] [address] [email or web address] Historical LMR Provider 02/09/17 Jesus Manuel Damon MD [address] [place] [address] [email or web address] Historical LMR Provider 10/07/18 documented as of this encounter Additional Source Comments The information contained in this document represents components of the legal health record. It is not the complete legal health record.[facility]
--- OUTSIDE RECORDS SUMMARY | 2025-01-27 11:05 | XMS_ITS | Encounter Summary ---
Author Organization [facility] Address [address] [place] [address] [place] [address] Phone Care Team Providers Care Wallpaper Printer Name Role Phone Ant Alcantar MD Unavailable [phone] Amy Callahan MD Unavailable [phone] Jesus Manuel Damon MD Unavailable [phone] Aym Callahan MD Primary Care Provider Encounter Details Date Type Department Care Team (Late st Contact Info) Description 03/05/2022 Procedure Pass [facility] [address] [place] [address] Social History Tobacco Use Types Packs/Day Years Used Date Smoking Tobacco: Never Smokeless Tobacco: Never Alcohol Use Standard Drinks/Week Comments Yes 8 (1 standard drink = 0.6 oz pur e alcohol) weekly Child or Family Care Answer Date Record ed Do you have problems with on e of the following making it difficult for you to work, study, or receive health care? No 05/16/2021 Education Answer Date Recorded Are you interested in help w ith more adult education (for example, completing high school, GED, job training, learning the [place] language, technical skills, or developing parenting skills)? No 05/16/2021 Are you concerned about learning? Not on file 05/16/2021 Not on file 05/16/2021 Not on file 05/16/2021 Food Answer Date Recorded Within the past 6 months we worried whether our food would run out before we got money to buy more. Never True 05/16/2021 Within the past 6 months the food we bought just didn't last and we didn't have enough money to get more. Never True Paying for Meds Answer Date Recorded Do you have trouble paying for medicines? No 05/16/2021 Paying Utility Bills Answer Date Record ed Do you have trouble paying your heating or elect ricity bill? No 05/16/2021 Transportation Answer Date Recorded Has the lack of transportati on kept you from medical appointments or from getting medications? No 05/16/2021 Comments No Sex and Gender Information Value Date Recorded Sex Assigned at Not on file Legal Sex Female 9:52 PM EDT Gender Identity Not on file Sexual Orientation Not on file documented as of this encounter Plan of Treatment Upcoming Encounters Date Type Department Care Team (Late st Contact Info) Description 08/29/2025 2:30 PM EDT Office Visit [address] [place] [address] Amy Callahan MD [address] [place] [address] [email or web address] documented as of this encounter Visit Diagnoses Not on filedocumented in this encounter Additional Health Concerns Assessment Noted Time PHQ-2 Depression Total Score: 0 05/16/19 22 1:19 PM EST documented as of this encounter Care Teams Wallpaper Printer Relationship Specialty Start Date End Date Amy Callahan MD [address] [place] [address] [email or web address] PCP - General Internal Medicine 10/21/18 Ant Alcantar MD [address] [place] [address] Historical LMR Provider 02/09/17 Amy Callahan MD [address] [place] [address] [email or web address] Historical LMR Provider 02/09/17 Jesus Manuel Damon MD [address] [place] [address] Dr [address] [place] [address] [email or web address] Historical LMR Provider 10/07/18 documented as of this encounter Additional Source Comments The information contained in this document represents components of the legal health record. It is not the complete legal health record.[facility]
--- OUTSIDE RECORDS SUMMARY | 2025-01-27 11:05 | XMS_ITS | Encounter Summary ---
Author Organization [facility] Address [address] [place] [address] Phone Care Team Providers Care Tire Bladder Maker Name Role Phone Milad Beasley MD Unavailable + Ant Alcantar MD Unavailable [phone] Amy Callahan MD Unavailable [phone] Jesus Manuel Damon MD Unavailable [phone] Froy Gastelum MD Unavailable [phone] Amy Callahan MD Primary Care Provider Encounter Details Date Type Department Care Team (Late st Contact Info) Description 12/30/2018 Procedure Pass [address] [place] [address] Social History Tobacco Use Types Packs/Day Years [...] on file documented as of this encounter Last Filed Vital Signs Vital Sign Reading Time Taken Comments Blood Pressure - - Pulse - - Temperature - - Respiratory Rate - - Oxygen Saturation - - Inhaled Oxygen Concentration - - Weight 77.1 kg (170 lb) 01/01/2019 9:39 AM EDT Height 157.5 cm (5' 2 ) 01/01/2019 9:39 AM EDT Body Mass Index 31.09 01/01/2019 9:39 AM EDT documented in this encounter Plan of Treatment Upcoming Encounters Date Type Department Care Team (Late st Contact Info) Description 08/29/2025 2:30 PM EDT Office Visit [facility] [address] [place] [address] [place] [address] Amy Callahan MD [address] [place] [address] documented as of this encounter Visit Diagnoses Not on filedocumented in this encounter Additional Health Concerns Infection Onset Date Last Indicated Resolved Time CoV-Risk 03/14/2020 03/15/2020 03/28/2020 1:24 AM EST Assessment Noted Time PHQ-2 Depression Total Score: 0 04/29/19 2:47 PM EST documented as of this encounter Care Teams Tire Bladder Maker Relationship Specialty Start Date End Date Amy Callahan MD [address] [place] [address] [email or web address] PCP - General Internal Medicine 10/21/18 Milad Beasley MD [address] [place] [address] [email or web address] Historical LMR Provider 02/09/17 05/04/21 Ant Alcantar MD [address] [place] [address] Historical LMR Provider 02/09/17 Amy Callahan MD [address] [place] [address] Historical LMR Provider 02/09/17 Jesus Manuel Damon MD [address] [place] [address] [address] [place] [address] [email or web address] Historical LMR Provider 10/07/18 Froy Gastelum MD [address] [place] [address] Historical LMR Provider 02/09/17 documented as of this encounter Additional Source Comments The information contained in this document represents components of the legal health record. It is not the complete legal health record.[facility]
--- OUTSIDE RECORDS SUMMARY | 2025-01-27 11:05 | XMS_ITS | Encounter Summary ---
Author Organization [facility] Address [address] [facility] [address] [place] [address] Phone Care Team Providers Care Motor And Generator Brush Maker Name Role Phone Ant lAcantar MD Unavailable [phone] Amy Callahan MD Unavailable [phone] Jesus Manuel Damon MD Unavailable [phone] Amy Callahan MD Primary Care Provider [phone] Encounter Details Date Type Department Care Team (Late st Contact Info) Description 03/05/2022 Transcribe Orders Virtual Department [address] [place] [address] Amy Callahan MD [address] [facility] [place], 2nd [place] [address] [email or web address] Breast screening (Primary Dx) Social History Tobacco Use Types Packs/Day Years Used Date Smoking Tobacco: Never Smokeless Tobacco: Never Alcohol Use Standard Drinks/Week Comments Yes 1 (1 standard drink = 0.6 oz pur [...] high school, GED, job training, learning the Yoruba language, technical skills, or developing parenting skills)? [...] Description 08/29/2025 2:30 PM EDT Office Visit [facility] [address] [place] [address] [place] [address] Amy Callahan MD [address] [place] [address], 2[address] [place] [address] [email or web address] documented as of this encounter Results * BI MAMMOGRAM SCREENING WITH TOMOSYNTHESIS WITH CAD (BILATERAL) (04/30/2022 10:45 AM EST) Anatomical Region Laterality Modality Breast Left, Breast Right, Breast Bilateral Bila teral Mammography 04/30/2022 5:15 PM EST Impressions 04/30/2022 6:53 PM EST No mammographic signs of malignancy. Annual screening is recommended. BI-RADS CATEGORY: 2 - Benign finding. DENSITY: There are scattered fibroglandular densities. Narrative 04/30/2022 6:53 PM EST Bilateral mammography is performed in conjunction with computed aided detection. 3-D tomography along with 2-D C view imaging was also performed. Comparison made to previous dated as far back as 11/08/2002 and as recent as 04/29/2021. No suspicious masses, areas of architectural distortion or suspicious microcalcifications. Tiny intramammary lymph node in the posterior upper outer right breast is stable. Procedure Note Ramakrishna Olson MD - 04/30/2022 Bilateral mammography is performed in conjunction with computed aideddetection. 3-D tomography along with 2-D C view imaging was alsoperformed. Comparison made to previous dated as far back as 11/08/2002 andas recent as 04/29/2021. No suspicious masses, areas of architectural distortion or suspiciousmicrocalcifications. Tiny intramammary lymph node in the posterior upperouter right breast is stable. IMPRESSION: No mammographic signs of malignancy. Annual screening is recommended. BI-RADS CATEGORY: 2 - Benign finding. DENSITY: There are scattered fibroglandular densities. Amy Callahan MD IMG MG EXAMS Final Result documented in this encounter Visit Diagnoses Diagnosis Breast screening- Primary Breast screening, unspecified Breast screening Breast screening, unspecified documented in this encounter Additional Health Concerns Assessment Noted Time PHQ-2 Depression Total Score: 0 05/16/19 22 1:19 PM EST documented as of this encounter Care Teams Motor And Generator Brush Maker Relationship Specialty Start Date End Date Amy Callahan MD [address] [place] [address], [address] [place] [address] PCP - General Internal Medicine 10/21/18 Ant Alcantar MD [address] [place] [address], [address] [place] [address] Historical LMR Provider 02/09/17 Amy Callahan MD [address] [place] [address], [address] [place] [address] [email or web address] Historical LMR Provider 02/09/17 Jesus Manuel Damon MD [address] [place] [address] Dr [address] [place] [address] [email or web address] Historical LMR Provider 10/07/18 documented as of this encounter Additional Source Comments The information contained in this document represents components of the legal health record. It is not the complete legal health record.[facility]
== END 2025-01-27 12:23 | disposition home or self-care (01) ==
LOC: HO.HNS 10:13
PROVIDERS: PCP Internal Medicine; Referring Provider Student in an Organized Health Care Education/Training Program; Visit Provider Neurological Surgery
DX: M48.062 Spinal stenosis, lumbar region with neurogenic claudication (principal)
CPT/HCPCS: 99204

== ENCOUNTER → 2025-01-27 10:12 | Outpatient (BNVA) | payer MEDICARE, SELFPAY | PROVIDERS: PCP Internal Medicine; Referring Provider Student in an Organized Health Care Education/Training Program; Visit Provider Neurological Surgery | DX: M48.062 Spinal stenosis, lumbar region with neurogenic claudication (principal) | CPT/HCPCS: 99202 ==

== ENCOUNTER 2025-04-06 07:18 | Day surgery (SDC) | payer MEDICARE, SELFPAY ==
[2025-03-21 11:37] VITALS: BMI 32.9
--- OUTSIDE RECORDS SUMMARY | 2025-03-21 15:14 | XMS_ITS | Encounter Summary ---
Author Organization [facility] Address [address] [place] [address] [place] [address] Phone Care Team Providers Care Senior Quality Assurance Specialist Name Role Phone Ant Alcantar MD Unavailable [phone] Amy Callahan MD Unavailable [phone] Jesus Manuel Damon MD Unavailable [phone] Amy Callahan MD Primary Care Provider [phone] Encounter Details Date Type Department Care Team (Late st Contact Info) Description 08/02/2024 Procedure Pass [facility] [address] [place], [place] [phone] Social History Tobacco Use Types Packs/Day Years [...] EDT Office Visit [facility] [address] [place] [address] [place] [address] Amy Callahan MD [address] [place] [address], [address] [place] [address] documented as of this encounter Visit Diagnoses Not on filedocumented in this encounter Additional Health Concerns Assessment Noted Time PHQ-2 Depression Total Score: 0 07/28/19 25 10:26 AM EDT documented as of this encounter Care Teams Senior Quality Assurance Specialist Relationship Specialty Start Date End Date Amy Callahan MD [address] [place] [address] [email or web address] PCP - General Internal Medicine 10/21/18 Ant Alcantar MD [address] [place] [address] [email or web address] Historical LMR Provider 02/09/17 Amy Callahan MD [address] [place] [address] [email or web address] Historical LMR Provider 02/09/17 Jesus Manuel Damon MD [address] [place] [address] [email or web address] Historical LMR Provider 10/07/18 documented as of this encounter Additional Source Comments The information contained in this document represents components of the legal health record. It is not the complete legal health record.[facility]
--- OUTSIDE RECORDS SUMMARY | 2025-03-21 15:14 | XMS_ITS | Encounter Summary ---
Author Organization [facility] Address [address] [facility] [address] [place] [address] Phone Care Team Providers Care Mission Systems Engineer Name Role Phone Ant Alcantar MD Unavailable [phone] Amy Callahan MD Unavailable [phone] Jesus Manuel Damon MD Unavailable Amy Callahan MD Primary Care Provider [phone] Encounter Details Date Type Department Care Team (Late st Contact Info) Description 03/11/2024 Procedure Pass [facility] - [address] [place] [address] Social History Tobacco Use Types Packs/Day Years [...] high school, GED, job training, learning the Belarusian language, technical skills, or developing parenting skills)? [...] EDT Office Visit [facility] [address] [place] [address] [place] [address] Amy Callahan MD [address] [place] [address], 2nd [place] [address] [email or web address] documented as of this encounter Visit Diagnoses Not on filedocumented in this encounter Additional Health Concerns Assessment Noted Time PHQ-2 Depression Total Score: 0 07/28/19 25 10:26 AM EDT documented as of this encounter Care Teams Mission Systems Engineer Relationship Specialty Start Date End Date Amy Callahan MD [address] [place] [address] [email or web address] PCP - General Internal Medicine 10/21/18 Ant Alcantar MD [address] [place] [address] [email or web address] Historical LMR Provider 02/09/17 Amy Callahan MD [address] [place] [address] [email or web address] Historical LMR Provider 02/09/17 Jesus Manuel Damon MD [address] [place] [address] [email or web address] Historical LMR Provider 10/07/18 documented as of this encounter Additional Source Comments The information contained in this document represents components of the legal health record. It is not the complete legal health record.[facility]
--- OUTSIDE RECORDS SUMMARY | 2025-03-21 15:14 | XMS_ITS | Encounter Summary ---
Author Organization [facility] Address [address] [place] [address] Phone Care Team Providers Care Commissary Representative Name Role Phone Milad Beasley MD Unavailable + Ant Alcantar MD Unavailable [phone] Amy Callahan MD Unavailable [phone] Jesus Manuel Damon MD Unavailable [phone] Froy Gastelum MD Unavailable [phone] Amy Callahan MD Primary Care Provider [phone] Encounter Details Date Type Department Care Team (Latest Contact Info) Description 04/22/2019 Transcribe Orders [address] [place] [address] Pasquale Hawthorne MD [address] [place] [address], [address] [place], [place] [phone] [email or web address] Weakness (Primary Dx) Social History Tobacco [...] Description 08/29/2025 2:30 PM EDT Office Visit [facility] [address] [place] [address] [place] [address] Amy Callahan MD [address] [place] [address] [email or web address] documented as of this encounter Results * (ABNORMAL) Glucose (04/22/2019 10:15 AM EST) GLUCOSE 121(H) 70 - 99 mg/dL [facility] Blood 04/22/2019 10:1 5 AM EST 04/22/2019 10:17 AM EST us Pasquale Hawthorne MD LAB BLOOD BKR ORDERABLES Fin al Result Performing Organization Address City/State/[facility] Co de Phone Number [facility] [address] [place] [address] documented in this encounter Visit Diagnoses Diagnosis Weakness- Primary Other malaise and fatigue documented in this encounter Additional Health Concerns Infection Onset Date Last Indicated Resolved Time CoV-Risk 03/14/2020 03/15/2020 03/28/2020 1:24 AM EST Assessment Noted Time PHQ-2 Depression Total Score: 0 04/29/19 2:47 PM EST documented as of this encounter Care Teams Commissary Representative Relationship Specialty Start Date End Date Amy Callahan MD [address] [place] [address] [email or web address] PCP - General Internal Medicine 10/21/18 Milad Beasley MD [address] [place] [address] [email or web address] Historical LMR Provider 02/09/17 05/04/21 Ant Alcantar MD [address] [place] [address] [email or web address] Historical LMR Provider 02/09/17 Amy Callahan MD [address] [place] [address] 2nd [place] [address] [email or web address] Historical LMR Provider 02/09/17 Jesus Manuel Damon MD [address] [place] [address] [email or web address] Historical LMR Provider 10/07/18 Froy Gastelum MD [address] [place] [address] Historical LMR Provider 02/09/17 documented as of this encounter Additional Source Comments The information contained in this document represents components of the legal health record. It is not the complete legal health record.[facility]
--- OUTSIDE RECORDS SUMMARY | 2025-03-21 15:14 | XMS_ITS | Encounter Summary ---
Author Organization [facility] Address [address] [place] [address] Phone Care Team Providers Care Clerical Grader Name Role Phone Milad Beasley MD Unavailable + Ant Alcantar MD Unavailable Amy Callahan MD Unavailable [phone] Jesus Manuel Damon MD Unavailable Froy Gastelum MD Unavailable [phone] Amy Callahan A Primary Care Provider Jesus Manuel Damon MD Primary Care Provider + Amy Callahan A Primary Care Provider Encounter Details Date Type Department Care Team (Late st Contact Info) Description 10/13/2017 Ancillary Orders [facility] Medicine [address] [place] [address] Yareli Diane PA-C [address] [place] [address] Orthopedics & Sports Medicine, [facility] [place], [place] [phone] [email or web address] Social History Tobacco Use Types Packs/Day Years [...] Description 08/29/2025 2:30 PM EDT Office [facility] [address] [place] [address] [place] [address] Amy Callahan MD [address] [place] [address] [email or web address] documented as of this encounter Visit Diagnoses Not on filedocumented in this encounter Additional Health Concerns Infection Onset Date Last Indicated Resolved Time CoV-Risk 03/14/2020 03/15/2020 03/28/2020 1:24 AM EST documented as of this encounter Care Teams Clerical Grader Relationship Specialty Start Date End Date Amy Callahan MD [address] [place] [address] [email or web address] PCP - General 02/10/17 10/06/18 Jesus Manuel Damon MD [address] [place] [address] [email or web address] PCP - General Family Medicine 10/07/18 10/20/18 Aym Callahan MD [address] [place] [address] [email or web address] PCP - General Internal Medicine 10/21/18 Milad Beasley MD [address] [place] [address] [email or web address] Historical LMR Provider 02/09/17 05/04/21 Ant Alcantar MD [address] [place] [address] [email or web address] Historical LMR Provider 02/09/17 Amy Callahan MD [address] [place] [address] [email or web address] Historical LMR Provider 02/09/17 Jesus Manuel Dmaon MD [address] [place] [address] [email or web address] Historical LMR Provider 10/07/18 Froy Gastelum MD [address] [place] [address] Historical LMR Provider 02/09/17 documented as of this encounter Additional Source Comments The information contained in this document represents components of the legal health record. It is not the complete legal health record.[facility]
--- OUTSIDE RECORDS SUMMARY | 2025-03-21 15:14 | XMS_ITS | Encounter Summary ---
Author Organization [facility] Address [address] [place] [address] Phone Care Team Providers Care Management Lead Name Role Phone Milad Beasley MD Unavailable + Ant Alcantar MD Unavailable Amy Callahan MD Unavailable [phone] Jesus Manuel Damon MD Unavailable [phone] Froy Gastelum MD Unavailable [phone] Amy Callahan A Primary Care Provider Jesus Manuel Damon MD Primary Care Provider + Amy Callahan A Primary Care Provider [phone] Encounter Details Date Type Department Care Team (Late st Contact Info) Description 10/13/2017 Ancillary Orders [address] [address] Yareli iDane PA-C [address] [place] [address] Orthopedics & Sports Medicine, [place], [place] [phone] [email or web address] Left wrist pain Social History Tobacco Use [...] 08/29/2025 2:30 PM EDT Office Visit [facility] [address] [place] [address] [place] [address] Amy Callahan MD [address] [place] [address] [email or web address] documented as of this encounter Results * [...] documented as of this encounter Care Teams Management Lead Relationship Specialty Start Date End Date Amy Callahan MD [address] [place] [address] [email or web address] PCP - General 02/10/17 10/06/18 Jesus Manuel Damon MD [address] [place] [address] [email or web address] PCP - General Family Medicine 10/07/18 10/20/18 Amy Callahan MD [address] [place] [address] [email or web address] PCP - General Internal Medicine 10/21/18 Milad Beasley MD [address] [place] [address] [email or web address] Historical LMR Provider 02/09/17 05/04/21 Ant Alcantar MD [address] [place] [address] [email or web address] Historical LMR Provider 02/09/17 Amy Callahan MD [address] [place] [address] [email or web address] Historical LMR Provider 02/09/17 Jesus Manuel Damon MD [address] [place] [address] [email or web address] Historical LMR Provider 10/07/18 Froy Gastelum MD [address] [place] [address] Historical LMR Provider 02/09/17 documented as of this encounter Additional Source Comments The information contained in this document represents components of the legal health record. It is not the complete legal health record.[facility]
--- OUTSIDE RECORDS SUMMARY | 2025-03-21 15:15 | XMS_ITS | Encounter Summary ---
Author Organization [facility] Address [address] [place] [address] Phone Care Team Providers Care Door Tender Name Role Phone Milad Beasley MD Unavailable + Ant Alcantar MD Unavailable [phone] Amy Callahan MD Unavailable [phone] Jesus Manuel Damon MD Unavailable [phone] Froy Gastelum MD Unavailable [phone] Amy Callahan MD Primary Care Provider [phone] Encounter Details Date Type Department Care Team (Late st Contact Info) Description 12/30/2018 Procedure Pass [address] [place] [address] Social History Tobacco Use Types Packs/Day Years [...] 08/29/2025 2:30 PM EDT Office Visit [facility] [address] [place] [address] [place] [address] Amy Callahan MD [address] [place] [address] documented as of this encounter Visit Diagnoses Not on filedocumented in this encounter Additional Health Concerns Infection Onset Date Last Indicated Resolved Time CoV-Risk 03/14/2020 03/15/2020 03/28/2020 1:24 AM EST Assessment Noted Time PHQ-2 Depression Total Score: 0 04/29/19 2:47 PM EST documented as of this encounter Care Teams Door Tender Relationship Specialty Start Date End Date Amy Callahan MD [address] [place] [address] [email or web address] PCP - General Internal Medicine 10/21/18 Milad Beasley MD [address] [place] [address] [email or web address] Historical LMR Provider 02/09/17 05/04/21 Ant Alcantar MD [address] [place] [address] Historical LMR Provider 02/09/17 Amy Callahan MD [address] [place] [address] Historical LMR Provider 02/09/17 Jesus Manuel Damon MD [address] [place] [address] [address] [place] [address] [email or web address] Historical LMR Provider 10/07/18 Froy Gastelum MD [address] [place] [address] Historical LMR Provider 02/09/17 documented as of this encounter Additional Source Comments The information contained in this document represents components of the legal health record. It is not the complete legal health record.[facility]
--- OUTSIDE RECORDS SUMMARY | 2025-03-21 15:15 | XMS_ITS | Encounter Summary ---
Author Organization [facility] Address [address] [place] [address] Phone Care Team Providers Care City Director Name Role Phone Milad Beasley MD Unavailable + Ant Alcantar MD Unavailable [phone] Amy Callahan MD Unavailable [phone] Jesus Manuel Damon MD Unavailable [phone] Froy Gastelum MD Unavailable [phone] Amy Callahan MD Primary Care Provider [phone] Encounter Details Date Type Department Care Team (Late st Contact Info) Description 04/11/2019 Transcribe Orders [facility] [place] [address] Pasquale Hawthorne MD [address] [place] [address], [address] [place] [address] [email or web address] Social History Tobacco Use Types Packs/Day [...] EDT Office Visit [facility] [address] [place] [address] [place] [address] Amy Callahan MD [address] [place] [address] [email or web address] documented as of this encounter Visit Diagnoses Not on filedocumented in this encounter Additional Health Concerns Infection Onset Date Last Indicated Resolved Time CoV-Risk 03/14/2020 03/15/2020 03/28/2020 1:24 AM EST Assessment Noted Time PHQ-2 Depression Total Score: 0 04/29/19 2:47 PM EST documented as of this encounter Care Teams City Director Relationship Specialty Start Date End Date Amy Callahan MD [address] [place] [address] PCP - General Internal Medicine 10/21/18 Milad Beasley MD [address] [place] [address] [email or web address] Historical LMR Provider 02/09/17 05/04/21 Ant Alcantar MD [address] [place] [address] Historical LMR Provider 02/09/17 Amy Callahan MD [address] [place] [address] Historical LMR Provider 02/09/17 Jesus Manuel Damon MD [address] [place] [address] [place] [address] [place] [address] [email or web address] Historical LMR Provider 10/07/18 Froy Gastelum MD [address] [place] [address] Historical LMR Provider 02/09/17 documented as of this encounter Additional Source Comments The information contained in this document represents components of the legal health record. It is not the complete legal health record.[facility]
--- OUTSIDE RECORDS SUMMARY | 2025-03-21 15:15 | XMS_ITS | Encounter Summary ---
Author Organization [facility] Address [address] [facility] [address] [place] [address] Phone Care Team Providers Care Metal Framer Name Role Phone Ant Alcantar MD Unavailable [phone] Amy Callahan MD Unavailable [phone] Jesus Manuel Damon MD Unavailable [phone] Amy Callahan MD Primary Care Provider [phone] Encounter Details Date Type Department Care Team (Late st Contact Info) Description 03/05/2022 Transcribe Orders Virtual Department [address] [place] [address] Amy Callahan MD [address] [facility], 2nd [place] [address] [email or web address] Breast screening (Primary Dx) Social History Tobacco [...] high school, GED, job training, learning the Cameroonian language, technical skills, or developing parenting skills)? [...] Description 08/29/2025 2:30 PM EDT Office Visit [facility] [address] [place] [address] [place] [address] Amy Callahan MD [address] [place] [address], 2nd [place] [address] [email or web address] documented as of this encounter Results * [...] documented as of this encounter Care Teams Metal Framer Relationship Specialty Start Date End Date Amy Callahan MD [address] [place] [address], [address] [place] [address] PCP - General Internal Medicine 10/21/18 Ant Alcantar MD [address] [place] [address], [address] [place] [address] Historical LMR Provider 02/09/17 Amy Callahan MD [address] [place] [address], [address] [place] [address] [email or web address] Historical LMR Provider 02/09/17 Jesus Manuel Damon MD [address] [place] [address] Dr [address] [place] [address] [email or web address] Historical LMR Provider 10/07/18 documented as of this encounter Additional Source Comments The information contained in this document represents components of the legal health record. It is not the complete legal health record.[facility]
--- OUTSIDE RECORDS SUMMARY | 2025-03-21 15:15 | XMS_ITS | Encounter Summary ---
Author Organization [facility] Address [address] [place] [address] [place] [address] Phone Care Team Providers Care Laborer Gold Leaf Name Role Phone Ant Alcantar MD Unavailable [phone] Amy Callahan MD Unavailable [phone] Jesus Manuel Damon MD Unavailable [phone] Amy Callahan MD Primary Care Provider [phone] Encounter Details Date Type Department Care Team (Late st Contact Info) Description 12/22/2024 Procedure Pass [facility], [address] [phone] Social History Tobacco Use Types Packs/Day Years [...] EDT Office Visit [facility] [address] [place] [address] [place] [address] Amy Callahan MD [address] [place] [address], 2nd [place] [address] [email or web address] documented as of this encounter Visit Diagnoses Not on filedocumented in this encounter Additional Health Concerns Assessment Noted Time PHQ-2 Depression Total Score: 0 07/28/19 25 10:26 AM EDT documented as of this encounter Care Teams Laborer Gold Leaf Relationship Specialty Start Date End Date Amy Callahan MD [address] [place] [address] [email or web address] PCP - General Internal Medicine 10/21/18 Ant Alcantar MD [address] [place] [address] [email or web address] Historical LMR Provider 02/09/17 Amy Callahan MD [address] [place] [address] [email or web address] Historical LMR Provider 02/09/17 Jesus Manuel Damon MD [address] [place] [address] [email or web address] Historical LMR Provider 10/07/18 documented as of this encounter Additional Source Comments The information contained in this document represents components of the legal health record. It is not the complete legal health record.[facility]
--- OUTSIDE RECORDS SUMMARY | 2025-03-21 15:15 | XMS_ITS | Encounter Summary ---
Author Organization [facility] Address [address] [facility] [address] [place] [address] Phone Care Team Providers Care Swat Team Member Name Role Phone Ant Alcantar MD Unavailable [phone] Amy Callahan MD Unavailable [phone] Jesus Manuel Damon MD Unavailable [phone] Amy Callahan MD Primary Care Provider [phone] Encounter Details Date Type Department Care Team (Late st Contact Info) Description 01/30/2023 Procedure Pass [facility] - [address] [place] [address] Social History Tobacco Use Types Packs/Day Years [...] high school, GED, job training, learning the Sammarinese language, technical skills, or developing parenting skills)? [...] EDT Office Visit [facility] [address] [place] [address] [place] [address] Amy Callahan MD [address] [place] [address], 2nd [place] [address] [email or web address] documented as of this encounter Visit Diagnoses Not on filedocumented in this encounter Additional Health Concerns Assessment Noted Time PHQ-2 Depression Total Score: 0 05/20/19 23 1:15 PM EST documented as of this encounter Care Teams Swat Team Member Relationship Specialty Start Date End Date Amy Callahan MD [address] [place] [address] [email or web address] PCP - General Internal Medicine 10/21/18 Ant Alcantar MD [address] [place] [address] [email or web address] Historical LMR Provider 02/09/17 Amy Callahan MD [address] [place] [address] [email or web address] Historical LMR Provider 02/09/17 Jesus Manuel Damon MD [address] [place] [address] [email or web address] Historical LMR Provider 10/07/18 documented as of this encounter Additional Source Comments The information contained in this document represents components of the legal health record. It is not the complete legal health record.[facility]
--- OUTSIDE RECORDS SUMMARY | 2025-03-21 15:15 | XMS_ITS | Encounter Summary ---
Author Organization [facility] Address [address] [place] [address] Phone Care Team Providers Care Mine Supervisor Name Role Phone Milad Beasley MD Unavailable + Ant Alcantar MD Unavailable [phone] Amy Callahan MD Unavailable [phone] Jesus Manuel Damon MD Unavailable [phone] Froy Gastelum MD Unavailable [phone] Amy Callahan MD Primary Care Provider [phone] Reason for Referral * MRI/CAT Scan - Closed Specialty Diagnoses / Procedures Referred By Contmara garcia Referred To Contact Radiology Diagnoses Weakness of both legs Procedures MRI Cervical Spine Pasquale Hawthorne MD Phone: tel: fax: [email or web address] Referral ID Status Reason Start Date Expiration Date Visits Re quested Visits Authorized [id number] Closed 02/25/2019 04/26/2019 1 1 Encounter Details Date Type Department Care Team (Latest Contact Info) Description 02/25/2019 Transcribe Orders Virtual Department [address] [place] [address] Pasquale Hawthorne MD [address] [facility], [address] [place], [place] [id number] [email or web address] Weakness of both legs (Primary Dx) [...] Description 08/29/2025 2:30 PM EDT Office Visit [facility] [address] [place] [address] [place] [address] Amy Callahan MD [address] [place] [address], 2nd [place] [address] [email or web address] documented as of this encounter Results * MRI CERVICAL SPINE (NEURO) FOCUS WITHOUT CONTRAST (03/09/2019 9:45 AM EST) Anatomical Region Laterality Modality C-spine Magnetic Resonan ce 03/09/2019 9:47 AM EST Impressions 03/09/2019 9:51 AM EST Small left paramedian C5-6 disc bulge. No central canal or significant neural foraminal stenosis or discrete cord lesion apparent. POS - [id number] Narrative 03/09/2019 9:51 AM EST TECHNIQUE: Exam [...] or discrete cord lesion apparent. POS - [id number] Pasquale Hawthorne MD IMG MR XSPECIALTY Final [...] documented as of this encounter Care Teams Mine Supervisor Relationship Specialty Start Date End Date Amy Callahan MD [address] [place] [address], 2[address] [place] [address] PCP - General Internal Medicine 10/21/18 Milad Beasley MD [address] [place] [address] [email or web address] Historical LMR Provider 02/09/17 05/04/21 Ant Alcantar MD [address] [place] [address] [email or web address] Historical LMR Provider 02/09/17 Amy Callahan MD [address] [place] [address] [email or web address] Historical LMR Provider 02/09/17 Jesus Manuel Damon MD [address] [place] [address] [email or web address] Historical LMR Provider 10/07/18 Froy Gastelum MD [address] [place] [address] Historical LMR Provider 02/09/17 documented as of this encounter Additional Source Comments The information contained in this document represents components of the legal health record. It is not the complete legal health record.[facility]
--- OUTSIDE RECORDS SUMMARY | 2025-03-21 15:15 | XMS_ITS | Clinical Summary ---
Author Organization [facility] Address [address] [place] [address] Phone Care Team Providers Care Burlesque Dancer Name Role Phone Ant Alcantar MD Unavailable [phone] Amy Callahan MD Unavailable [phone] Jesus Manuel Damon MD Unavailable [phone] Amy Callahan MD Primary Care Provider [phone] Allergies No known active allergies Medications CETIRIZINE [...] Assessment & Plan (12/03/2017 11:58 AM EDT): intermediate symptoms with normal wet mount today. Rx given for hydrocortisone and terbinafine given exam findings. Reviewed application instructions, discussed vulvar skin care recommendations particularly around use of clear detergent and avoidance of fabric softener. Also discussed coconut oil PRN as moisture barrier. Closed fracture of left distal radius and ulna 0 09/11/2017 Encounters Date Type Department Care Team Description 02/02/2025 11:19 AM EDT - 02/02/2025 11:59 PM EDT Hospital Encounter [facility] [address] [place] [id number] Amy Callahan MD Discharge Disposition: Home or Self Care 01/19/2025 5:42 PM EDT - 01/19/2025 11:59 PM EDT Hospital Encounter [address] [address] Pasquale Vo DO Discharge Disposition: Home or Self Care 12/22/2024 Procedure Pass [address] [address] 12/22/2024 Transcribe Orders Virtual Department [address] [place] [address] Pasquale Vo, Spinal stenosis, lumbar region with neurogenic claudication (Primary Dx) from Last 3 Months Immunizations [...] 08/29/2025 2:30 PM EDT Office Visit [facility] [address] [place] [address] [place] [address] Amy Callahan MD [address] [place] [address], [address] [place] [address] [email or web address] Health Maintenance Due Date Last Done Comments [...] 04/30/2022, Additional history exists SCREENING FOR DIABETES 02/03/2028 , 07/29/2024, 04/22/2019, Additional history exists COLONOSCOPY 10/07/2028 10/07/2018 COLORECTAL CANCER SCREENING 10/07/2028 LIPID PANEL 07/29/2029 07/29/2024, 05/10/2020 Adult Td,Tdap Booster 04/02/2031 04/02/2021 , 02/02/2014, 02/24/2006 RSV VACCINE (1 - 1-dose 75+ series) 2032 ZOSTER VACCINES Completed 08/27/2020, 05/05/2019 PNEUMOCOCCAL VACCINES (50+ years) Completed 05/20/2022 HEPATITIS C SCREENING Completed 09/25/2023, 024 OSTEOPOROSIS SCREENING INITIAL (ONE-TIME) Completed 03/23/2024 SMOKING [...] Procedure Name Priority Date/Time Associated Diagnosis Comments HEMOGLOBIN A1C Routine 02/02/2025 11:20 AM EDT Elevated glucose MRI LUMBAR SPINE (NEURO) WITHOUT CONTRAST Routine 01/19/2025 6:40 PM EDT Spinal stenosis, lumbar region with neurogenic claudication BI MAMMOGRAM SCREENING WITH TOMOSYNTHESIS WITH CAD (BILATERAL) Routine 08/26/2024 11:07 AM EDT Visit for screening mammogram LIPID PANEL Routine 07/29/2024 10:06 AM EDT Screening, lipid COMPREHENSIVE METABOLIC PANEL (CMP) Routine 07/29/2024 10:06 AM EDT Age-related osteoporosis [...] Recently Relevant to Health Maintenance Results * Hemoglobin A1c (02/02/2025 11:20 AM EDT) HEMOGLOBIN A1C 5.8 4.3 - 5.8 % [facility] Blood 02/02/2025 11:2 0 AM EDT 02/02/2025 11:22 AM EDT us Amy A London [facility] LAB BLOOD BKR ORDERABLES Nimisha rivers Result [facility] [address] [place] [address] * MRI LUMBAR SPINE (NEURO) WITHOUT CONTRAST [...] left bilateral subarticular disc protrusions, resulting in tukn-ep-jlvkpwzk spinal canal stenosis and moderate bilateral neural foramina narrowing. Overall, degenerative disc disease changes appear similar compared to prior study. L3-L4: There is diffuse disc bulge with bilateral facet hypertrophy and ligamentum flavum thickening, resulting in alsk-gz-uiiaawvx spinal canal stenosis and moderate bilateral neural [...] L4 on L5, unchanged. There is chronic Q1qayfxdnbcpt fracture with 30% vertebral body height loss, unchanged.Vertebral body heights are otherwise maintained without evidence of acutecompression fracture. Marrow: No focal aggressive osseous lesions are identified. There is mildbone marrow edema involving the right L4-L5 facet joint and right B3tokzzoy, appear similar compared to prior study. Discs [...] and leftbilateral subarticular disc protrusions, resulting in fduj-dv-jxusxskhgkbpix canal stenosis and moderate bilateral neural foramina narrowing.Overall, degenerative disc disease changes appear similar compared topmcqueeneyr study. L3-L4: There is diffuse disc bulge with bilateral facet hypertrophy andligamentum flavum thickening, resulting in edfw-xd-eowrkqys spinal canalstenosis and moderate bilateral neural foramina [...] IMG MR XSPECIALTY Final Resu lt * BI MAMMOGRAM SCREENING WITH TOMOSYNTHESIS WITH [...] EDT) SODIUM 145 133 - 146 mmol/L [facility] POTASSIUM 4.9 3.3 - 5.1 mmol/L [facility] CHLORIDE 106 96 - 108 mmol/L [facility] CO2 29 21 - 35 mmol/L [facility] BUN 18 6 - 19 mg/dL [facility] CREATININE 0.80 0.5 - 1.5 mg/dL [facility] GLUCOSE 115(H) 70 - 99 mg/dL [facility] ALBUMIN 4.6 3.9 - 4.8 g/dL [facility] TOTAL PROTEIN 7.6 6.5 - 8.0 g/dL [facility] CALCIUM 9.4 8.4 - 10.3 mg/dL [facility] ALKALINE PHOSPHATASE 82 39 - 117 U/L [facility] TOTAL BILIRUBIN 0.3 0.0 - 1.2 mg/dL [facility] AST 30 0 - 37 U/L [facility] ALT 26 0 - 40 U/L [facility] GLOBULIN 3.0 1 - 4.8 g/dL [facility] EGFR 81 >59 mL/min/1.7 3m2 [facility] Comment:Estimated glomerular filtration rate calculated using the CKD-EPI refit equation. ANION GAP 15 10 - 20 mmol/L [facility] Blood 07/29/2024 10:0 6 AM EDT 07/29/2024 10:15 AM EDT us Amy A London [facility] BLOOD BKR ORDERABLES Nimisha rivers Result [facility] [address] [place] [address] * (ABNORMAL) Lipid panel (07/29/2024 10:06 AM EDT) HDL 69 mg/dL [facility] Comment: Interpretation <40 mg/dL: Low HDL cholesterol (major risk factor for CHD) Greater than or equal to 60 mg/dL: High HDL cholesterol ( negative risk factor for CHD) HDL - cholesterol is affected by a number of factors, e.g. smoking, excerise, hormones, sex and age. CHOLESTEROL 188 0 - 240 mg/dL [facility] TRIGLYCERIDES 81 30 - 160 mg/dL [facility] LDL 103 50 - 129 mg/dL [facility] Comment: LDL levels in terms of risk for coronary heart disease: <100 mg/dL: Optimal 100-129 mg/dL: Near or above optimal 130-159 mg/dL: Borderline high 160-189 mg/dL: High >190 mg/dL: Very High CARDIAC RISK RATIO 2.7(L) 3.3 - 4.4 C [facility] Blood 07/29/2024 10:0 6 AM EDT 07/29/2024 10:15 AM EDT us Amy Callahan MD LAB BLOOD BKR ORDERABLES Nimisha l Result [facility] [address] [place] [address] * BD DXA AXIAL (SPINE) WITH HIP (03/23/2024 10:57 AM EST) Anatomical Region Laterality Modality Bone Density Bone Density 03/23/2024 10:5 3 AM EST Impressions 03/23/2024 11:00 AM EST Interpretation: Osteoporosis. Narrative 03/23/2024 11:00 AM EST Referred By: AMY CALLAHAN Indications: Estrogen Deficiency Scanner: [employer] A with serial# of [id number] located at [facility] Bone Density Scan (DXA) 03/23/24 Details [...] -2.5), or Osteoporosis (T-score <= -2.5). At [facility], T-scores are compared to peak bone [...] By: AMY CALLAHAN Indications: Estrogen Deficiency Scanner: [employer] A with serial# of [id number] located at [facility] Bone Density Scan (DXA) 03/23/24 Details of [...] -2.5), or Osteoporosis (T-score <= -2.5). 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 PAP SMEAR (SUREPATH) CE: SPECIMEN ADEQUACY: Satisfactory for evaluation; transformation zone present. INTERPRETATION: NEGATIVE FOR INTRAEPITHELIAL LESION OR MALIGNANCY. Electronically Signed Out By: JULIENNE Walker(ASCP) The Pap test is a screening test [...] 52, 56, 58, 59, 66, 68) by [employer] Onclarity HR-HPV analysis. Clinical correlation is advised. This HPV test was performed at [facility], [address] [place] [address]. This test has been FDA approved for SurePath cervical cytology specimens. The accuracy and precision of this test for all other specimen sources has been verified in the Cytopathology Laboratory of the [facility] and has not been cleared or approved by the U.S. Food and Drug Administration. Clinical correlation is advised. CLINICAL HISTORY Date of Last Menstrual Period: Not Provided Menstrual History: Post Menopausal Other Clinical Conditions: Screening Pap SPECIMEN SOURCE A: PAP SMEAR (SUREPATH) CE Patient Name: ARELY GASTELUM : 1955 (Age: 66) Sex: F Institution: [facility] Location: [facility] Date of Collection: 05/16/2021 Date of Reported: 05/21/2021 15:49 Results to: Amy Callahan MD, [facility], B us Amy Callahan MD CYTOLOGY ORDERABLES Final Res ult SEE NARRATIVE * (ABNORMAL) Glucose (04/22/2019 10:15 AM EST) GLUCOSE 121(H) 70 - 99 mg/dL [facility] Blood 04/22/2019 10:1 5 AM EST 04/22/2019 10:17 AM EST us Pasquale Hawthorne MD LAB BLOOD BKR ORDERABLES Fin al Result Performing Organization Address City/[facility]/ZIP Co de Phone Number [address] [address] * COLONOSCOPY FOR RESULT ENTRY ONLY (10/07/2018) Colonoscopy [facility] us Historical Provider HEALTH MAINTENANCE Final Result from Last 3 Months or Most Recently Relevant to Health Maintenance [place] BLUE REPLACEMENT [facility] MEDICARE PPO BLUE REPLAC[place] Advance Directives For more information, please contact: [phone] (9AM - 5PM Tawn[facility], Thursday-Thursday) Documents on File Type Date Recorded 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 PCP - General Internal Medicine 10/21/18 Ant Alcantar MD [address] [place] [address] [email or web address] Historical LMR Provider 02/09/17 Amy Callahan MD [address] [place] [address] [email or web address] Historical LMR Provider 02/09/17 Jessu Manuel Damon MD [address] [place] [address] [email or web address] Historical LMR Provider 10/07/18 Additional Source Comments The information contained in this document represents components of the legal health record. It is not the complete legal health record.[facility]
--- OUTSIDE RECORDS SUMMARY | 2025-03-21 15:15 | XMS_ITS | Encounter Summary ---
Author Organization [facility] Address [address] [facility] [address] [place] [address] Phone Care Team Providers Care Sediment Remediation Consultant Name Role Phone Milad Beasley MD Unavailable + Ant Alcantar MD Unavailable [phone] Amy Callahan MD Unavailable [phone] Jesus Manuel Damon MD Unavailable Froy Gastelum MD Unavailable [phone] Amy Callahan MD Primary Care Provider [phone] Encounter Details Date Type Department Care Team (Late st Contact Info) Description 04/06/2019 Ancillary Orders [facility] [address] [place] [address] [place] [address] Amy Callahan MD [address] [place] [address], 2nd [place] [address] [email or web address] Breast screening Social History Tobacco Use Types [...] 08/29/2025 2:30 PM EDT Office Visit [facility] [address] [place] [address] [place] [address] Amy Callahan MD [address] [place] [address], [address] [place] [address] [email or web address] documented as of this encounter Results [...] documented as of this encounter Care Teams Sediment Remediation Consultant Relationship Specialty Start Date End Date Amy Callahan MD [address] [place] [address] [email or web address] PCP - General Internal Medicine 10/21/18 Milad Beasley MD [address] [place] [address] [email or web address] Historical LMR Provider 02/09/17 05/04/21 Ant Alcantar MD [address] [place] [address] Historical LMR Provider 02/09/17 Amy Callahan MD [address] [place] [address] [email or web address] Historical LMR Provider 02/09/17 Jesus Manuel Damon MD [address] [place] [address] Historical LMR Provider 10/07/18 Froy Gastelum MD [address] [place] [address] Historical LMR Provider 02/09/17 documented as of this encounter Additional Source Comments The information contained in this document represents components of the legal health record. It is not the complete legal health record.[facility]
--- OUTSIDE RECORDS SUMMARY | 2025-03-21 15:15 | XMS_ITS | Encounter Summary ---
Author Organization [facility] Address [address] [facility] [address] [place] [address] Phone Care Team Providers Care Social Director Name Role Phone Milad Beasley MD Unavailable + Ant Alcantar MD Unavailable Amy Callahan MD Unavailable [phone] Jesus Manuel Damon MD Unavailable [phone] Froy Gastelum MD Unavailable [phone] Amy Callahan MD Primary Care Provider [phone] Encounter Details Date Type Department Care Team (Late st Contact Info) Description 03/26/2020 Ancillary Orders [facility] [address] [place] [address] [place] [address] Amy Callahan MD [address] [place] [address], [address] [place] [address] [email or web address] Breast [...] EDT Office Visit [facility] [address] [place] [address] [place] [address] Amy Callahan MD [address] [place] [address], [address] [place] [address] [email or web address] documented as [...] documented as of this encounter Care Teams Social Director Relationship Specialty Start Date End Date Amy Callhaan MD [address] [place] [address] PCP - General Internal Medicine 10/21/18 Milad Beasley MD [address] [place] [address] [email or web address] Historical LMR Provider 02/09/17 05/04/21 Ant Alcantar MD [address] [place] [address] Historical LMR Provider 02/09/17 Amy Callahan MD [address] [place] [address] Historical LMR Provider 02/09/17 Jesus Manuel Damon MD [address] [place] [address] Historical LMR Provider 10/07/18 Froy Gastelum MD [address] [place] [address] Historical LMR Provider 02/09/17 documented as of this encounter Additional Source Comments The information contained in this document represents components of the legal health record. It is not the complete legal health record.[facility]
--- OUTSIDE RECORDS SUMMARY | 2025-03-21 15:15 | XMS_ITS | Encounter Summary ---
Author Organization [facility] Address [address] [place] [address] Phone Care Team Providers Care Patient Assistant Name Role Phone Milad Beasley MD Unavailable + Ant Alcantar MD Unavailable [phone] Amy Callahan MD Unavailable [phone] Jesus Manuel Damon MD Unavailable [phone] Froy Gastelum MD Unavailable [phone] Amy Callahan MD Primary Care Provider [phone] Encounter Details Date Type Department Care Team (Latest Contact Info) Description 03/07/2019 Transcribe Orders [address] [place] [address] Pasquale Hawthorne MD [address] [place] [address], [address] [place], [place] [id number] [email or web address] Numbness (Primary Dx); Weakness Social History [...] Description 08/29/2025 2:30 PM EDT Office Visit [facility] [address] [place] [address] [place] [address] Amy Callahan MD [address] [place] [address], [address]nd [place] [address] [email or web address] documented as of this encounter Results * Vitamin B12 (03/07/2019 8:46 AM EST) Pathologist [facility] VITAMIN B12 377 232 - 1,245 pg/mL [facility] Blood 03/07/2019 8:46 AM EST 03/07/2019 8:52 AM EST us Pasquale Hawthorne MD LAB BLOOD BKR ORDERABLES Fin al Result [facility] [address] [place] [address] * (ABNORMAL) Monoclonal protein study, serum (03/07/2019 8:46 AM EST) Pathologist [facility] TOTAL PROTEIN 6.9 6.3 - 7.9 g/dL [facility]PATH [address] ALBUMIN 3.7 3.4 - 4.7 g/dL [facility]PATH [address] ALPHA-1 GLOBULIN 0.2 0.1 - 0.3 g/dL [facility]/PATH [address] ALPHA-2 GLOBULIN 1.1(H) 0.6 - 1.0 g/dL [facility]PATH [address] BETA-GLOBULIN 1.0 0.7 - 1.2 g/dL [facility]PATH [address] GAMMA-GLOBULIN 1.0 0.6 - 1.6 g/dL [facility]PATH [address] A/G RATIO 1.19 [facility]/PATH [address] M SPIKE Test component not applicable or not reported. g/dL [facility]PATH [address] M SPIKE Test component not applicable or not reported. g/dL [facility]/PATH [address] IMPRESSION SEE NOTE [facility]/PATH [address] Comment: (NOTE) No apparent monoclonal protein on serum electrophoresis. See Immunofixation. IMMUNOFIXATION No monoclonal protein detected. [facility]/PATH [address] Blood 03/07/2019 8:46 AM EST 03/07/2019 8:52 AM EST Pasquale Hawthorne MD LAB BLOOD BKR ORDERABLES Fin al Result Performing Organization Address [facility] Co de Phone Number [facility] LAB MED/PATH [address] [place] [address] * Sedimentation rate (ESR) (03/07/2019 8:46 AM EST) ESR 12 0 - 30 mm/h [facility] Blood 03/07/2019 8:46 AM EST 03/07/2019 8:52 AM EST Pasquale Hawthorne MD LAB BLOOD BKR ORDERABLES Fin al Result Performing Organization Address [facility] de Phone Number [address] [address] * (ABNORMAL) Lyme screen with reflex to Western blot, blood (03/07/2019 8:46 AM EST) Lyme AB IgG Negative Negative [facility] Lyme AB IgM Positive(A) Negative [facility] Comment:The Lyme Disease Ant ibody, Confirmation, Serum (Western Blot) has been reflexed. The results will follow. Blood 03/07/2019 8:46 AM EST 03/07/2019 8:52 AM EST Pasquale Hawthorne MD LAB BLOOD BKR ORDERABLES Fin al Result Performing Organization Address [facility] Co de Phone Number [address] [address] * (ABNORMAL) Glucose (03/07/2019 8:46 AM EST) GLUCOSE 119(H) 70 - 99 mg/dL [facility] Blood 03/07/2019 8:46 AM EST 03/07/2019 8:52 AM EST us Pasquale Hawthorne MD LAB BLOOD BKR ORDERABLES Fin al Result Performing Organization Address [facility] Co de Phone Number [address] [address] * CPK (creatine kinase) (03/07/2019 8:46 AM EST) CREATINE KINASE 109 21 - 215 U/L [facility] Blood 03/07/2019 8:46 AM EST 03/07/2019 8:52 AM EST us Pasquale Hawthorne MD LAB BLOOD BKR ORDERABLES Fin al Result Performing Organization Address [facility] Co de Phone Number [address] [address] * Antinuclear antibody (NITHIN) (03/07/2019 8:46 AM EST) NITHIN SCREEN ON HEP 2 Negative Negative [facility] Blood 03/07/2019 8:4 6 AM EST 03/07/2019 8:52 AM EST us Pasquale Hawthorne MD LAB BLOOD BKR ORDERABLES Fin al Result Performing Organization Address [facility] de Phone Number [address] [address] documented in this encounter Visit Diagnoses Diagnosis Numbness- Primary Disturbance of skin sensation Weakness Other malaise and fatigue documented in this encounter Additional Health Concerns Infection Onset Date Last Indicated Resolved Time CoV-Risk 03/14/2020 03/15/2020 03/28/2020 1:24 AM EST Assessment Noted Time PHQ-2 Depression Total Score: 0 04/29/19 2:47 PM EST documented as of this encounter Care Teams Patient Assistant Relationship Specialty Start Date End Date Amy Callahan MD [address] [place] [address], 2nd [place] [address] PCP - General Internal Medicine 10/21/18 Milad Beasley MD [address] [place] [address] [email or web address] Historical LMR Provider 02/09/17 05/04/21 Ant Alcantar MD [address] [place] [address] [email or web address] Historical LMR Provider 02/09/17 Amy Callahan MD [address] [place] [address] [email or web address] Historical LMR Provider 02/09/17 Jesus Manuel Damon MD [address] [place] [address] [email or web address] Historical LMR Provider 10/07/18 Froy Gastelum MD [address] [place] [address] Historical LMR Provider 02/09/17 documented as of this encounter Additional Source Comments The information contained in this document represents components of the legal health record. It is not the complete legal health record.[facility]
--- OUTSIDE RECORDS SUMMARY | 2025-03-21 15:15 | XMS_ITS | Encounter Summary ---
Author Organization [facility] Address [address] [facility] [address] [place] [address] Phone Care Team Providers Care Gas Plant Technician Name Role Phone Milad Beasley MD Unavailable + Ant Alcantar MD Unavailable Amy Callahan MD Unavailable [phone] Jesus Manuel Damon MD Unavailable Froy Gastelum MD Unavailable [phone] Amy Callahan A Primary Care Provider Jesus Manuel Damon MD Primary Care Provider + Amy Callahan A Primary Care Provider Encounter Details Date Type Department Care Team (Late Contact Info) Description 02/19/2017 Ancillary Orders [facility] [address] [place] [address] [place] [address] Amy Callahan MD [address] [place] [address], 2nd [place] [address] Visit for screening mammogram Social History Tobacco [...] 08/29/2025 2:30 PM EDT Office Visit [facility] [address] [place] [address] Amy Callahan MD [address] [facility], 2nd [place] [address] [email or web address] documented as [...] documented as of this encounter Care Teams Gas Plant Technician Relationship Specialty Start Date End Date Amy Callahan MD [address] [place] [address], 2nd [place] [address] PCP - General 02/10/17 10/06/18 Jesus Manuel Damon MD [address] [place] [address] [email or web address] PCP - General Family Medicine 10/07/18 10/20/18 Amy Callahan MD [address] [place] [address] PCP - General Internal Medicine 10/21/18 Milad Beasley MD [address] [place] [address] [email or web address] Historical LMR Provider 02/09/17 05/04/21 Ant Alcantar MD [address] [place] [address] Historical LMR Provider 02/09/17 Amy Callahan MD [address] [place] [address] Historical LMR Provider 02/09/17 Jesus Manuel Damon MD [address] [place] [address] [email or web address] Historical LMR Provider 10/07/18 Froy Gastelum MD [address] [place] [address] Historical LMR Provider 02/09/17 documented as of this encounter Additional Source Comments The information contained in this document represents components of the legal health record. It is not the complete legal health record.[facility]
--- OUTSIDE RECORDS SUMMARY | 2025-03-21 15:15 | XMS_ITS | Encounter Summary ---
Author Organization [facility] Address [address] [place] [address] [place] [address] Phone Care Team Providers Care Record Changer Assembler Name Role Phone Milad Beasley MD Unavailable + Ant Alcantar MD Unavailable [phone] Amy Callahan MD Unavailable [phone] Jesus Manuel Damon MD Unavailable [phone] Froy Gastelum MD Unavailable [phone] Amy Callahan MD Primary Care Provider [phone] Encounter Details Date Type Department Care Team (Late st Contact Info) Description 03/07/2021 Procedure Pass [facility] - [address] [place] [address] Social History Tobacco Use Types Packs/Day Years [...] Description 08/29/2025 2:30 PM EDT Office Visit [facility] [address] [place] [address] [place] [address] Amy Callahan MD [address] [place] [address] [email or web address] documented as of this encounter Visit Diagnoses Not on filedocumented in this encounter Additional Health Concerns Assessment Noted Time PHQ-2 Depression Total Score: 0 05/05/19 20 2:41 PM EST documented as of this encounter Care Teams Record Changer Assembler Relationship Specialty Start Date End Date Amy Callahan MD [address] [place] [address] [email or web address] PCP - General Internal Medicine 10/21/18 Milad Beasley MD [address] [place] [address] [email or web address] Historical LMR Provider 02/09/17 05/04/21 Ant Alcantar MD [address] [place] [address] [email or web address] Historical LMR Provider 02/09/17 Amy Callahan MD [address] [place] [address] [email or web address] Historical LMR Provider 02/09/17 Jesus Manuel Damon MD [address] [place] [address] [email or web address] Historical LMR Provider 10/07/18 Froy Gastelum MD [address] [place] [address] Historical LMR Provider 02/09/17 documented as of this encounter Additional Source Comments The information contained in this document represents components of the legal health record. It is not the complete legal health record.[facility]
--- OUTSIDE RECORDS SUMMARY | 2025-03-21 15:15 | XMS_ITS | Encounter Summary ---
Author Organization [facility] Address [address] [place] [address] Phone Care Team Providers Care Pneumatic Riveter Name Role Phone Milad Beasley MD Unavailable + Ant Alcantar MD Unavailable [phone] Amy Callahan MD Unavailable [phone] Jesus Manuel Damon MD Unavailable [phone] Froy Gastelum MD Unavailable [phone] Amy Callahan MD Primary Care Provider [phone] Reason for Referral * Physical Therapy (Routine) - Closed Specialty Diagnoses / Procedures Referred By Maryanne garcia Referred To Contact Physical Therapy Diagnoses Encounter for rehabilitation Pasquale Hawthorne MD Phone: tel: fax: [email or web address] [facility] [address] [place] [address] Phone: tel: Referral ID Status Reason Start Date Expiration Date Visits Re quested Visits Authorized [id number] Closed 04/11/2019 04/11/2020 1 1 Encounter Details Date Type Department Care Team (Latest Contact Info) Description 04/11/2019 Transcribe Orders [facility] [address] [place] [address] Pasquale Hawthorne MD [address] [place] [address], [address] [place] [address] [email or web address] Encounter for rehabilitation (Primary Dx) Social History [...] 08/29/2025 2:30 PM EDT Office Visit [facility] [address] [place] [address] [place] [address] Amy Callahan MD [address] [place] [address] [email or web address] Scheduled Referrals Name Type Priority Associated Diagnoses Orde r Schedule Ambulatory referral to [facility] Physical Therapy Outpatient Referral Routine Encounter for rehabilitation Ordered: 04/11/2019 documented as of this encounter Visit Diagnoses Diagnosis Encounter for rehabilitation- Primary documented in this encounter Additional Health Concerns Infection Onset Date Last Indicated Resolved Time CoV-Risk 03/14/2020 03/15/2020 03/28/2020 1:24 AM EST Assessment Noted Time PHQ-2 Depression Total Score: 0 04/29/19 2:47 PM EST documented as of this encounter Care Teams Pneumatic Riveter Relationship Specialty Start Date End Date Amy Callahan MD [address] [place] [address] [email or web address] PCP - General Internal Medicine 10/21/18 Milad Beasley MD [address] [place] [address] [email or web address] Historical LMR Provider 02/09/17 05/04/21 Ant Alcantar MD [address] [place] [address] [email or web address] Historical LMR Provider 02/09/17 Amy Callahan MD [address] [place] [address] [email or web address] Historical LMR Provider 02/09/17 Jesus Manuel Damon MD [address] [place] [address] [email or web address] Historical LMR Provider 10/07/18 Froy Gastelum MD [address] [place] [address] Historical LMR Provider 02/09/17 documented as of this encounter Additional Source Comments The information contained in this document represents components of the legal health record. It is not the complete legal health record.[facility]
--- OUTSIDE RECORDS SUMMARY | 2025-03-21 15:15 | XMS_ITS | Encounter Summary ---
Author Organization [facility] Address [address] [place] [address] [place] [address] Phone Care Team Providers Care Rock Contractor Name Role Phone Ant Alcantar MD Unavailable [phone] Amy Callahan MD Unavailable [phone] Jesus Manuel Damon MD Unavailable [phone] Amy Callahan MD Primary Care Provider [phone] Encounter Details Date Type Department Care Team (Late st Contact Info) Description 03/05/2022 Procedure Pass [facility] - [address] [place] [address] Social History Tobacco Use Types Packs/Day Years [...] high school, GED, job training, learning the Maori language, technical skills, or developing parenting skills)? [...] Description 08/29/2025 2:30 PM EDT Office Visit [address] [place] [address] Amy Callahan MD [address] [place] [address] [email or web address] documented as of this encounter Visit Diagnoses Not on filedocumented in this encounter Additional Health Concerns Assessment Noted Time PHQ-2 Depression Total Score: 0 05/16/19 22 1:19 PM EST documented as of this encounter Care Teams Rock Contractor Relationship Specialty Start Date End Date Amy Callahan MD [address] [place] [address] [email or web address] PCP - General Internal Medicine 10/21/18 Ant Alcantar MD [address] [place] [address] [email or web address] Historical LMR Provider 02/09/17 Amy Callahan MD [address] [place] [address] [email or web address] Historical LMR Provider 02/09/17 Jesus Manuel Damon MD [address] [place] [address] Dr [address] [place] [address] [email or web address], [email or web address] Historical LMR Provider 10/07/18 documented as of this encounter Additional Source Comments The information contained in this document represents components of the legal health record. It is not the complete legal health record.[facility]
--- OUTSIDE RECORDS SUMMARY | 2025-03-21 15:15 | XMS_ITS | Encounter Summary ---
Author Organization [facility] Address [address] [place] [address] Phone Care Team Providers Care Electrical Apprentice Name Role Phone Milad Beasley MD Unavailable + Ant Alcantar MD Unavailable Amy Callahan MD Unavailable [phone] Jesus Manuel Damon MD Unavailable [phone] Froy Gastelum MD Unavailable [phone] Amy Callahan MD Primary Care Provider Encounter Details Date Type Department Care Team (Late st Contact Info) Description 04/11/2019 Transcribe Orders [facility] [place] [address] Pasquale Hawthorne MD [address] [place] [address], [address] [place] [address] [email or web address] Social History Tobacco Use Types Packs/Day [...] EDT Office Visit [facility] [address] [place] [address] [place] [address] Amy Callahan MD [address] [place] [address] [email or web address] documented as of this encounter Visit Diagnoses Not on filedocumented in this encounter Additional Health Concerns Infection Onset Date Last Indicated Resolved Time CoV-Risk 03/14/2020 03/15/2020 03/28/2020 1:24 AM EST Assessment Noted Time PHQ-2 Depression Total Score: 0 04/29/19 2:47 PM EST documented as of this encounter Care Teams Electrical Apprentice Relationship Specialty Start Date End Date Amy Callahan MD [address] [place] [address] PCP - General Internal Medicine 10/21/18 Milad Beasley MD [address] [place] [address] [email or web address] Historical LMR Provider 02/09/17 05/04/21 Ant Alcantar MD [address] [place] [address] Historical LMR Provider 02/09/17 Amy Callahan MD [address] [place] [address] Historical LMR Provider 02/09/17 Jesus Manuel Damon MD [address] [place] [address] [place] [address] [place] [address] [email or web address] Historical LMR Provider 10/07/18 Froy Gastelum MD [address] [place] [address] Historical LMR Provider 02/09/17 documented as of this encounter Additional Source Comments The information contained in this document represents components of the legal health record. It is not the complete legal health record.[facility]
--- OUTSIDE RECORDS SUMMARY | 2025-03-21 15:15 | XMS_ITS | Encounter Summary ---
Author Organization [facility] Address [address] [facility] [address] [place] [address] Phone Care Team Providers Care Junior Designer Name Role Phone Milad Beasley MD Unavailable + Ant Alcantar MD Unavailable [phone] Amy Callahan MD Unavailable [phone] Jesus Manuel Damon MD Unavailable [phone] Froy Gastelum MD Unavailable [phone] Amy Callahan A Primary Care Provider [phone] Jesus Manuel Damon MD Primary Care Provider + Amy Callahan A Primary Care Provider [phone] Encounter Details Date Type Department Care Team (Late st Contact Info) Description 01/21/2018 Ancillary Orders [facility] [address] [place] [address] [place] [address] Amy Callahan MD [address] [facility], 2nd [place] [address] [email or web address] Breast screening Social History Tobacco Use Types [...] 08/29/2025 2:30 PM EDT Office Visit [facility] [address] [place] [address] [place] [address] Amy Callahan MD [address] [place] [address], [address] [place] [address] [email or web address] documented as of this encounter Results * [...] documented as of this encounter Care Teams Junior Designer Relationship Specialty Start Date End Date Amy Callahan MD [address] [place] [address] [email or web address] PCP - General 02/10/17 10/06/18 Jesus Manuel Damon MD [address] [place] [address] [email or web address] PCP - General Family Medicine 10/07/18 10/20/18 Amy Callahan MD [address] [place] [address] [email or web address] PCP - General Internal Medicine 10/21/18 Milad Beasley MD [address] [place] [address] [email or web address] Historical LMR Provider 02/09/17 05/04/21 Ant Alcantar MD [address] [place] [address] [email or web address] Historical LMR Provider 02/09/17 Amy Callahan MD [address] [place] [address], [address] [place] [address] [email or web address] Historical LMR Provider 02/09/17 Jesus Manuel Damon MD [address] [place] [address] [email or web address] Historical LMR Provider 10/07/18 Froy Gastelum MD [address] [place] [address] Historical LMR Provider 02/09/17 documented as of this encounter Additional Source Comments The information contained in this document represents components of the legal health record. It is not the complete legal health record.[facility]
--- OUTSIDE RECORDS SUMMARY | 2025-03-21 15:15 | XMS_ITS | Encounter Summary ---
Author Organization [facility] Address [address] [place] [address] Phone Care Team Providers Care Swimming Professor Name Role Phone Ant Alcantar MD Unavailable [phone] Amy Callahan MD Unavailable [phone] Jesus Manuel Damon MD Unavailable [phone] Amy Callahan MD Primary Care Provider [phone] Reason for Referral * MRI/CAT Scan - Closed Specialty Diagnoses / Procedures Referred By Contac t Referred To Contact Radiology Diagnoses Spinal stenosis, lumbar region with neurogenic claudication Procedures MRI Lumbar Spine CHG MRI, LUMBAR SPINE CHG MRI, LUMBAR SPINE COMBO CHG MRI, LUMBAR SPINE CONTRAST Pasquale Vo DO [address] [place] [address] Phone: tel: fax: mailto:[email or web address] [email or web address] Referral ID Status Reason Start Date Expiration Date Visits Re quested Visits Authorized [id number] Closed 12/22/2024 02/18/2025 1 1 Encounter Details Date Type Department Care Team (Latest Contact Info) Description 12/22/2024 Transcribe Orders Virtual Department [address] [place] [address] Pasquale Vo DO [address] [place] [address] [email or web address] Spinal stenosis, lumbar region with neurogenic claudication [...] Description 08/29/2025 2:30 PM EDT Office Visit [facility] [address] [place] [address] [place] [address] Amy Callahan MD [address] [place] [address], 2nd [place] [address] [email or web address] documented as of this encounter Results * [...] left bilateral subarticular disc protrusions, resulting in bker-jd-vxyjmcqz spinal canal stenosis and moderate bilateral neural foramina narrowing. Overall, degenerative disc disease changes appear similar compared to prior study. L3-L4: There is diffuse disc bulge with bilateral facet hypertrophy and ligamentum flavum thickening, resulting in oiqc-uc-xffndbfq spinal canal stenosis and moderate bilateral neural [...] L4 on L5, unchanged. There is chronic Y5uwhsyqopywc fracture with 30% vertebral body height loss, unchanged.Vertebral body heights are otherwise maintained without evidence of acutecompression fracture. Marrow: No focal aggressive osseous lesions are identified. There is mildbone marrow edema involving the right L4-L5 facet joint and right T9pfgrrlz, appear similar compared to prior study. Discs [...] and leftbilateral subarticular disc protrusions, resulting in zhrq-fm-xklarrfgvprzli canal stenosis and moderate bilateral neural foramina narrowing.Overall, degenerative disc disease changes appear similar [facility]. L3-L4: There is diffuse disc bulge with bilateral facet hypertrophy andligamentum flavum thickening, resulting in cscc-rs-miudjykd spinal canalstenosis and moderate bilateral neural foramina [...] documented as of this encounter Care Teams Swimming Professor Relationship Specialty Start Date End Date Amy Callahan MD [address] [place] [address] PCP - General Internal Medicine 10/21/18 Ant Alcantar MD [address] [place] [address] Historical LMR Provider 02/09/17 Amy Callahan MD [address] [place] [address] Historical LMR Provider 02/09/17 Jesus Manuel Damon MD [address] [place] [address] Historical LMR Provider 10/07/18 documented as of this encounter Additional Source Comments The information contained in this document represents components of the legal health record. It is not the complete legal health record.[facility]
--- OUTSIDE RECORDS SUMMARY | 2025-03-21 15:15 | XMS_ITS | Encounter Summary ---
Author Organization [facility] Address [address] [facility] [address] [place] [address] Phone Care Team Providers Care Pedorthist Name Role Phone Milad Beasley MD Unavailable + Ant Alcantar MD Unavailable [phone] Amy Callahan MD Unavailable [phone] Jesus Manuel Damon MD Unavailable Froy Gastelum MD Unavailable [phone] Amy Callahan A Primary Care Provider [phone] Jesus Manuel Damon MD Primary Care Provider + Amy Callahan A Primary Care Provider Encounter Details Date Type Department Care Team (Late st Contact Info) Description 2017 Ancillary Orders [facility] [address] [place] [address] [place] [address] Amy Callahan MD [address] [facility], 2nd [place] [address] [email or web address] Abnormal mammogram of right breast Social History [...] 08/29/2025 2:30 PM EDT Office Visit [facility] [address] [place] [address] Amy Callahan MD [address] [place] [address], [address] [place] [address] [email or web address] Scheduled Orders Name Type Priority Associated Diagnoses [...] documented as of this encounter Care Teams Pedorthist Relationship Specialty Start Date End Date Amy Callahan MD [address] [place] [address] [email or web address] PCP - General 02/10/17 10/06/18 Jesus Manuel Damon MD [address] [place] [address] [email or web address] PCP - General Family Medicine 10/07/18 10/20/18 Amy Callahan MD [address] [place] [address] [email or web address] PCP - General Internal Medicine 10/21/18 Milad Beasley MD [address] [place] [address] [email or web address] Historical LMR Provider 02/09/17 05/04/21 Ant Alcantar MD [address] [place] [address] [email or web address] Historical LMR Provider 02/09/17 Amy Callahan MD [address] [place] [address] [email or web address] Historical LMR Provider 02/09/17 Jesus Manuel Damon MD [address] [place] [address] [email or web address] Historical LMR Provider 10/07/18 Froy Gastelum MD [address] [place] [address] Historical LMR Provider 02/09/17 documented as of this encounter Additional Source Comments The information contained in this document represents components of the legal health record. It is not the complete legal health record.[facility]
--- OUTSIDE RECORDS SUMMARY | 2025-03-21 15:15 | XMS_ITS | Encounter Summary ---
Author Organization [facility] Address [address] [place] [address] [place] [address] Phone Care Team Providers Care Dairy Store Manager Name Role Phone Milad Beasley MD Unavailable + Ant Alcantar MD Unavailable [phone] Amy Callahan MD Unavailable [phone] Jesus Manuel Damon MD Unavailable [phone] Froy Gastelum MD Unavailable [phone] Amy Callahan MD Primary Care Provider [phone] Encounter Details Date Type Department Care Team (Late st Contact Info) Description 03/26/2020 Procedure Pass [facility] - [address] [place] [address] Social History Tobacco Use Types Packs/Day Years [...] Description 08/29/2025 2:30 PM EDT Office Visit [facility] [address] [place] [address] [place] [address] Amy Callahan MD [address] [address] [email or web address] documented as of this encounter Visit Diagnoses Not on filedocumented in this encounter Additional Health Concerns Infection Onset Date Last Indicated Resolved Time CoV-Risk 03/14/2020 03/15/2020 03/28/2020 1:24 AM EST Assessment Noted Time PHQ-2 Depression Total Score: 0 05/05/19 20 2:41 PM EST documented as of this encounter Care Teams Dairy Store Manager Relationship Specialty Start Date End Date Amy Callahan MD [address] [place] [address] [email or web address] PCP - General Internal Medicine 10/21/18 Milad Beasley MD [address] [place] [address] [email or web address] Historical LMR Provider 02/09/17 05/04/21 Ant Alcantar MD [address] [place] [address] [email or web address] Historical LMR Provider 02/09/17 Amy Callahan MD [address] [place] [address] [email or web address] Historical LMR Provider 02/09/17 Jesus Manuel Damon MD [address] [place] [address] [email or web address] Historical LMR Provider 10/07/18 Froy Gastelum MD [address] [place] [address] Historical LMR Provider 02/09/17 documented as of this encounter Additional Source Comments The information contained in this document represents components of the legal health record. It is not the complete legal health record.[facility]
--- OUTSIDE RECORDS SUMMARY | 2025-03-21 15:15 | XMS_ITS | Encounter Summary ---
Author Organization [facility] Address [address] [facility] [address] [place] [address] Phone Care Team Providers Care Assistant Paralegal Name Role Phone Milad Beasley MD Unavailable + Ant Alcantar MD Unavailable Amy Callahan MD Unavailable [phone] Jesus Manuel Damon MD Unavailable Froy Gastelum MD Unavailable [phone] Amy Callahan A Primary Care Provider [phone] Jesus Manuel Damon MD Primary Care Provider + Amy Callahan A Primary Care Provider [phone] Encounter Details Date Type Department Care Team (Late st Contact Info) Description 09/10/2017 Ancillary Orders [facility], X-Ray - [address] [place] [address] Dara Jerome PA-C [address] [facility], [address] [place] [address] [email or web address] Left wrist pain; Right foot pain Social History Tobacco Use Types Packs/Day [...] 08/29/2025 2:30 PM EDT Office Visit [facility] [address] [place] [address] [place] [address] Amy Callahan MD [address] [place] [address], 2[address] [place] [address] [email or web address] documented as of this encounter Results * XR FOOT 3 OR MORE VIEWS (RIGHT) (09/10/2017 4:26 PM EDT) Anatomical Region Laterality Modality Foot Right Radiographic Miranda ging 09/10/2017 4:25 PM EDT Impressions 09/10/2017 4:28 PM EDT Nondisplaced third distal phalanx intra-articular fracture. POS - [id number] Narrative 09/10/2017 4:28 PM EDT HISTORY: As above. COMPARISON: None. RIGHT FOOT RADIOGRAPH FINDINGS: 3 views obtained. There is a impacted nondisplaced intra-articular fracture of the third distal phalanx base. No other fractures. Joint spaces are maintained. No destructive bone lesions. No acute soft tissue findings. Procedure Note Zach Ontiveros MD - 09/10/2017 HISTORY: As above. COMPARISON: None. RIGHT FOOT RADIOGRAPH FINDINGS: 3 views obtained. There is a impacted nondisplaced intra-articularfracture of the third distal phalanx base. No other fractures. Jointspaces are maintained. No destructive bone lesions. No acute soft tissuefindings. IMPRESSION: Nondisplaced third distal phalanx intra-articular fracture. POS - [id number] Dara Jerome PASkylerC IMG XR LOWER EXTREMITY Final Result * XR WRIST 3 OR MORE VIEWS (LEFT) (09/10/2017 4:25 PM EDT) Anatomical Region Laterality Modality Wrist Left Radiographic Miranda ging 09/10/2017 4:22 PM EDT Impressions 09/10/2017 4:28 PM EDT 1. Impacted nondisplaced intra-articular distal radial fracture and ulnar styloid fracture. 2. Mild first carpal metacarpal joint osteoarthritis. POS - [id number] Narrative 09/10/2017 4:28 PM EDT HISTORY: As above. COMPARISON: None. LEFT WRIST RADIOGRAPH FINDINGS: 5 views obtained including navicular views. Nondisplaced ulnar styloid avulsion fracture and impacted nondisplaced intra-articular distal radial fracture. Mild first carpometacarpal joint space narrowing and spurring. No destructive bone lesions. No acute soft tissue findings. Procedure Note Zach Ontiveros MD - 09/10/2017 HISTORY: As above. COMPARISON: None. LEFT WRIST RADIOGRAPH FINDINGS: 5 views obtained including navicular views. Nondisplaced ulnar styloidavulsion fracture and impacted nondisplaced intra-articular distal radialfracture. Mild first carpometacarpal joint space narrowing and spurring.No destructive bone lesions. No acute soft tissue findings. IMPRESSION: 1. Impacted nondisplaced intra-articular distal radial fracture and ulnarstyloid fracture. 2. Mild first carpal metacarpal joint osteoarthritis. POS - [id number] Dara Jerome PA-C IMG XR UPPER EXTREMITY Final Result documented in this encounter Visit Diagnoses Diagnosis Left wrist pain Pain in joint, forearm Right foot pain Pain in soft tissues of limb Left wrist pain Pain in joint, forearm Right foot pain Pain in soft tissues of limb Left wrist pain Pain in joint, forearm Right foot pain Pain in soft tissues of limb documented in this encounter Additional Health Concerns Infection Onset Date Last Indicated Resolved Time CoV-Risk 03/14/2020 03/15/2020 03/28/2020 1:24 AM EST documented as of this encounter Care Teams Assistant Paralegal Relationship Specialty Start Date End Date Amy Callahan MD [address] [place] [address] [email or web address] PCP - General 02/10/17 10/06/18 Jesus Manuel Damon MD [address] [place] [address] [email or web address] PCP - General Family Medicine 10/07/18 10/20/18 Amy Callahan MD [address] [place] [address] PCP - General Internal Medicine 10/21/18 Milad Beasley MD [address] [place] [address] [email or web address] Historical LMR Provider 02/09/17 05/04/21 Ant Alcantar MD [address] [place] [address] [email or web address] Historical LMR Provider 02/09/17 Amy Callahan MD [address] [place] [address] [email or web address] Historical LMR Provider 02/09/17 Jesus Manuel Damon MD [address] [place] [address] [email or web address] Historical LMR Provider 10/07/18 Fryo Gastelum MD [address] [place] [address] Historical LMR Provider 02/09/17 documented as of this encounter Additional Source Comments The information contained in this document represents components of the legal health record. It is not the complete legal health record.[facility]
--- OUTSIDE RECORDS SUMMARY | 2025-03-21 15:15 | XMS_ITS | Encounter Summary ---
Author Organization [facility] Address [address] [facility] [address] [place] [address] Phone Care Team Providers Care Instructional Systems Specialist Name Role Phone Ant Alcantar MD Unavailable [phone] Amy Callahan MD Unavailable [phone] Jesus Manuel Damon MD Unavailable [phone] Amy Callahan MD Primary Care Provider [phone] Encounter Details Date Type Department Care Team (Late st Contact Info) Description 09/28/2023 Procedure Pass [facility], [address] [place] [address] Social History Tobacco Use Types Packs/Day Years [...] high school, GED, job training, learning the Czech language, technical skills, or developing parenting skills)? [...] EDT Office Visit [facility] [address] [place] [address] [place] [address] Amy Callahan MD [address] [place] [address], 2nd [place] [address] [email or web address] documented as of this encounter Visit Diagnoses Not on filedocumented in this encounter Additional Health Concerns Assessment Noted Time PHQ-2 Depression Total Score: 0 05/20/19 23 1:15 PM EST documented as of this encounter Care Teams Instructional Systems Specialist Relationship Specialty Start Date End Date Amy Callahan MD [address] [place] [address] [email or web address] PCP - General Internal Medicine 10/21/18 Ant Alcantar MD [address] [place] [address] [email or web address] Historical LMR Provider 02/09/17 Amy Callahan MD [address] [place] [address] [email or web address] Historical LMR Provider 02/09/17 Jesus Manuel Damon MD [address] [place] [address] [email or web address] Historical LMR Provider 10/07/18 documented as of this encounter Additional Source Comments The information contained in this document represents components of the legal health record. It is not the complete legal health record.[facility]
--- OUTSIDE RECORDS SUMMARY | 2025-03-21 15:15 | XMS_ITS | Encounter Summary ---
Author Organization [facility] Address [address] [place] [address] [place] [address] Phone Care Team Providers Care Employee Operations Examiner Name Role Phone Milad Beasley MD Unavailable + Ant Alcantar MD Unavailable [phone] Amy Callahan MD Unavailable [phone] Jesus Manuel Damon MD Unavailable [phone] Froy Gastelum MD Unavailable [phone] Amy Callahan MD Primary Care Provider [phone] Encounter Details Date Type Department Care Team (Late st Contact Info) Description 02/25/2019 Procedure Pass [address] [place] [address] Social History Tobacco Use Types Packs/Day Years [...] Description 08/29/2025 2:30 PM EDT Office Visit [facility] [address] [place] [address] [place] [address] Amy Callahan MD [address] [place], [place] [address] [address] [email or web address] documented as of this encounter Visit Diagnoses Not on filedocumented in this encounter Additional Health Concerns Infection Onset Date Last Indicated Resolved Time CoV-Risk 03/14/2020 03/15/2020 03/28/2020 1:24 AM EST Assessment Noted Time PHQ-2 Depression Total Score: 0 04/29/19 2:47 PM EST documented as of this encounter Care Teams Employee Operations Examiner Relationship Specialty Start Date End Date Amy Callahan MD [address] [place] [address] [email or web address] PCP - General Internal Medicine 10/21/18 Milad Beasley MD [address] [place] [address] [email or web address] Historical LMR Provider 02/09/17 05/04/21 nAt Alcantar MD [address] [place] [address] [email or web address] Historical LMR Provider 02/09/17 Amy Callahan MD [address] [place] [address] [email or web address] Historical LMR Provider 02/09/17 Jesus Manuel Damon MD [address] [place] [address] [email or web address] Historical LMR Provider 10/07/18 Froy Gastelum MD [address] [place] [address] Historical LMR Provider 02/09/17 documented as of this encounter Additional Source Comments The information contained in this document represents components of the legal health record. It is not the complete legal health record.[facility]
--- OUTSIDE RECORDS SUMMARY | 2025-03-21 15:15 | XMS_ITS | Encounter Summary ---
Author Organization [facility] Address [address] [place] [address] [place] [address] Phone Care Team Providers Care Software Developer Mid Level Name Role Phone Ant Alcantar MD Unavailable [phone] Amy Callahan MD Unavailable [phone] Jesus Manuel Damon MD Unavailable [phone] Amy Callahan MD Primary Care Provider [phone] Encounter Details Date Type Department Care Team (Late st Contact Info) Description 12/02/2022 Procedure Pass [place] Admitting Dept - Virtual Department [address] [place], [place] [phone] Social History Tobacco Use Types Packs/Day Years [...] high school, GED, job training, learning the Eritre[place] language, technical skills, or developing parenting skills)? [...] EDT Office Visit [facility] [address] [place] [address] [place] [address] Amy Callahan MD [address] [place] [address], [address] [place] [address] [email or web address] documented as of this encounter Visit Diagnoses Not on filedocumented in this encounter Additional Health Concerns Assessment Noted Time PHQ-2 Depression Total Score: 0 05/20/19 23 1:15 PM EST documented as of this encounter Care Teams Software Developer Mid Level Relationship Specialty Start Date End Date Amy Callahan MD [address] [place] [address] [email or web address] PCP - General Internal Medicine 10/21/18 Ant Alcantar MD [address] [place] [address] [email or web address] Historical LMR Provider 02/09/17 Amy Callahan MD [address] [place] [address] [email or web address] Historical LMR Provider 02/09/17 Jesus Manuel Damon MD [address] [place] [address] [email or web address] Historical LMR Provider 10/07/18 documented as of this encounter Additional Source Comments The information contained in this document represents components of the legal health record. It is not the complete legal health record.[facility]
--- NOTE | 2025-03-27 11:59 | HO.ANESPROP2 ---
Documented by User: Yari Crain NP 04/03/25 13:05 HPI - Anesthesia Eval Consult details Narrative: 70yo F for Right L4-5 Lumbar Decompression, 04/06/25 PONV PMFSH Active Problems Active Problems: All Active Problems Lumbar stenosis with neurogenic claudication (Acute) Past Medical History Medical History History of Mohs micrographic surgery for skin cancer PONV (postoperative nausea and vomiting) Low back pain Eczema Allergic rhinitis Environmental and seasonal allergies Hx of skin cancer, basal cell (~2022) Diabetes Weakness of both legs Hx of cardiac murmur Surgical History Surgical History Hx of dilation and curettage Hx of colonoscopy Hx of basal cell carcinoma excision (~2022) Social History Social History Household Members: Spouse Housing: House Are you a primary career placement services counselor to a significant other at home: No Do you presently have visiting nurse or other home services: No Patient Tobacco Use Status: Never used Tobacco e-Cigarette/Vaping Use: Never Used Use of substances other than those prescribed or required for medical reasons: No Have you been hit, kicked, punched, or otherwise hurt by someone within the past year? If so, by whom?: No Are you DNR?: No Advance Directives: No (will bring dos) Advance Directives Information Provided: Yes Advance Directives on File: No Meds Allergies Allergy/AdvReac Type Severity Reaction Status Date / Time No Known Allergies Allergy Verified 03/21/25 11:34 Home Medications ?Medication ?Instructions ?Recorded ?Confirmed ?Last Taken ?Type biotin 10,000 mcg capsule 10,000 mcg PO DAILY 03/21/25 03/21/25 Unknown History cetirizine 10 mg tablet (Zyrtec) 10 mg PO DAILY 03/21/25 03/21/25 Unknown History magnesium glycinate 120 mg (as 240 mg PO DAILY 03/21/25 03/21/25 Unknown History glycinate) capsule metformin 500 mg tablet,extended 500 mg PO QPM 03/21/25 03/21/25 Unknown History release 24 hr Exam Height,Weight and Vital Signs: Height 5 ft 2 in Weight 81.647 kg Narrative Narrative: ECHO 08/2024 Assessment and Plan Assessment Anesthesia Assessment: Chart Reviewed Documented by User: Angely Mcgowan MD 04/06/25 07:36 [facility] Past Medical History Medical History History of Mohs micrographic surgery for skin cancer PONV (postoperative nausea and vomiting) Low back pain Eczema Allergic rhinitis Environmental and seasonal allergies Hx of skin cancer, basal cell (~2022) Diabetes Weakness of both legs Hx of cardiac murmur Family History Family history of problems with anesthesia: No Surgical History Surgical History Hx of dilation and curettage Hx of colonoscopy Hx of basal cell carcinoma excision (~2022) History of Problems with Anesthesia: No Social History Social History Household Members: Spouse Housing: House Are you a primary career placement services counselor to a significant other at home: No Do you presently have visiting nurse or other home services: No Patient Tobacco Use Status: Never used Tobacco e-Cigarette/Vaping Use: Never Used Use of substances other than those prescribed or required for medical reasons: No Have you been hit, kicked, punched, or otherwise hurt by someone within the past year? If so, by whom?: No Are you DNR?: No Advance Directives: No (will bring dos) Advance Directives Information Provided: Yes Advance Directives on File: No Meds Allergies Allergy/AdvReac Type Severity Reaction Status Date / Time No Known Allergies Allergy Verified 03/21/25 11:34 Home Medications ?Medication ?Instructions ?Recorded ?Confirmed ?Last Taken ?Type biotin 10,000 mcg capsule 10,000 mcg PO DAILY 03/21/25 03/21/25 Unknown History cetirizine 10 mg tablet (Zyrtec) 10 mg PO DAILY 03/21/25 03/21/25 Unknown History magnesium glycinate 120 mg (as 240 mg PO DAILY 03/21/25 03/21/25 Unknown History glycinate) capsule metformin 500 mg tablet,extended 500 mg PO QPM 03/21/25 03/21/25 Unknown History release 24 hr Exam Airway Mallampati Class: II TM Dist: >3cm Neck ROM: Full Heart: rrr Lungs: cta Assessment and Plan Assessment Anesthesia Assessment: Anesthesia Plan Discussed Final Anesthetic Review Family History of Problems with Anesthesia: No History of Problems with Anesthesia: No NPO: Yes ASA Class: II Final Preanesthetic Review: No Changes in Pt Med Stat, Meds/Allgs Chart Reviewed, Consent Obtained/Reviewed and Anes Risks/Benef Reviewed Patient Risk: Intermediate Procedure Risk: Intermediate Anesthetic Plan Anesthetic Plan: GA and Agree w/ Assess. and Plan Disposition: Standard PACU
--- NOTE | 2025-04-04 16:18 | PM.DS ---
DS: Providers Provider Date of Service: 04/06/25 Date of discharge: 04/06/25 Primary care physician: Amy Callahan MD Admitting clinician: Kristian Baker DS: Diagnosis Discharge Diagnosis (1) Lumbar stenosis with neurogenic claudication: Status: Acute DS: Summary Time Attestation Discharge Coordination Time (in mins): 5 Quality: Safe Use of Opioids Does Pt have an Active Cancer Diagnosis on the Problem List?: No Quality: Stroke Does the patient have a stroke diagnosis?: No Physical Exam Vital Signs: Vital Signs: BMI result Body Mass Index 32.9 Discharge Plan Discharge Patient Disposition: Home, Self-Care Referrals: Amy Callahan MD [Primary Care Provider, Internal Medicine] - 1 Week Discharge Medications: New docusate sodium [Colace] 100 mg capsule 100 mg PO BID Qty: 20 0RF oxycodone 5 mg tablet 5 mg PO Q4H PRN (Reason: pain) Qty: 20 0RF Rx Instructions: Partial Fill upon patient request. Continued cetirizine [Zyrtec] 10 mg Tablet 10 mg PO DAILY biotin 10,000 mcg Capsule 10,000 mcg PO DAILY metformin 500 mg tablet extended release 24 hr 500 mg PO QPM magnesium glycinate 120 mg Capsule 240 mg PO DAILY Discharge Orders: Discharge Order (Routine); Ordered 04/06/25 Ordered By: Eduardo Kim Diet: Advance to usual diet Activity on Discharge: As tolerated Activity Restrictions/Additional Instructions: After your spinal surgery we ask you to observe the following restrictions/guidelines: Activity: It is normal to feel some discomfort as you increase your activity, but that will improve with time. We ask you avoid heavy lifting or acitivities that cause pain. As a general rule, 8lbs is a safe limit for lifting right after surgery. Walk as much as you feel comfortable but not to exhaustion. You will feel extra tired the first few days after surgery. Stay well hydrated. It is OK to walk up and down stairs You may return to driving when you are off narcotics (such as vicodin, oxycodone, dilaudid, etc), and you are back to normal functional capacity. If you have any concerns please check with office before driving. Return to work is specific to each patient and each surgery, so please speak with your doctor/PA at first follow up. Please bring paperwork such as FMLA at that time if you need it filled out. Medications: For optimum pain control, it is best to start with a combination of 500 mg of Tylenol every 4 hours with 600 mg of Motrin every 8 hours, and use narcotics as needed in between for breakthrough pain. We will give you a short supply of narcotics after surgery (usually one weeks worth). If you need more please call the office but do not use more than prescribed. You will need to give our office 48 hours notice if you need narcotics refilled and we do not fill narcotics on weekends or evenings. If you are on a narcotic, it is a good idea to take a stool softener such as colace or senna to avoid constipation If you take blood thinner such as aspirin, Plavix, Coumadin, Effient, Eliquis etc for conditions such as Afib, DVT, Pulmonary embolus, coronary disease, stents etc please speak with your surgeon about specific details as to when you can resume these medications. Follow up: Please call the office, , after surgery to arrange a 3 week follow up for wound check. Wound Care: You may remove your dressing on the first day after surgery. ?You may ?leave open to air. Please do not remove the steri strips underneath. they will fall off on their own in one week. IT IS NORMAL FOR THE WOUND TO OOZE OR BE BLOODY FOR A FEW DAYS AFTER SURGERY. ?IF THIS HAPPENS JUST PLACE NEW DRESSING OVER IT TO AVOID STAINING CLOTHES. You may shower on post op day # 1 We ask that you do not let the water soak the wound. If it does get wet, just towel dry lightly. Please do not scrub your incision or place any type of chemical/ointment on the wound. No tub baths, pools or jacuzzis for one month. If you have any leaking or redness from your wound, or fevers, please call office Print Language: Jordanian
--- NOTE | ~2025-04-06 | FL_ITS ---
EXAMINATION: XR FLUOROSCOPY WITH IMAGES CLINICAL INFORMATION: Right L4-5 decompression COMPARISON: None available. TECHNIQUE: Fluoroscopy time: 3 seconds DAP: 0.8 mGy Images: 1 FINDINGS: Fluoroscopy provided for procedure. Spot image demonstrates surgical instrument projected posteriorly at the level of the L4-5 disc space. No radiologist present. FL/FL guidance in OR IMPRESSION: Fluoroscopy provided for procedure. See procedure report for details. Electronically signed by: Josué Doss MD 04/07/2025 11:24 AM TOM
--- NOTE | 2025-04-06 07:10 | MHC.SHP ---
Pre-Procedural Eval Section A - 24 Hr Update-Section A only Date of Service: 04/06/25 The patient is an INPATIENT: No Changes since office visit: No Cold of Flu in the past 2 weeks, No New Medical Problems, No Changes in Medication and No Patient answered all questions The patient has been examined within 24 hours of the surgical procedure. The History & Physical has been completed within 30 days and I have reviewed it.: No Section B - Complete if H&P > 30 days Chief Complaint: Spinal stenosis, lumbar region with neurogenic Allergies: Allergies Allergy/AdvReac Type Severity Reaction Status Date / Time No Known Allergies Allergy Verified 03/21/25 11:34 Review of Systems Sugical H&P ROS: Negative: Constitution, Cardiovascular, Respiratory, Neurological, Psychiatric, Hem-Onc, Allergic/Immunologic, Gastrointestinal, Genitourinary, Musculoskeletal, Integumentary, Endocrine and Eyes/Ears/Nose/Throat Exam Surgical H&P Exam: Normal: HEENT, Normal: Heart, Normal: Lungs, Normal: Extremities, Normal: Abdomen, Normal: Skin and Normal: Neurological (awake, alert,oriented x 3 ) Plan Diagnosis/Plan: Unchanged right side approach for bilat decompresson L4-5 Time Spent With Patient Time: Total time managing care of this patient today __5__ minutes.
[2025-04-06 08:07] VITALS: BMI 33.3
[2025-04-06 08:17] LABS: Glucose, Whole Blood 105 mg/dL (60-115)
[2025-04-06 08:18] VITALS: BP 134/67; PULSE 73; RESP 18; TEMP 36.3; O2SAT 96
[2025-04-06] MEDS: Lactated Ringers 1,000 ML 100 ML IVCONT (08:34)
--- NOTE | 2025-04-06 09:58 | P.OP_ITS ---
Operative Note Operative Note Date of Service: 04/06/25 Narrative: Preoperative Diagnosis: L4-5 spinal stenosis/lateral recess stenosis/neural foraminal stenosis Operation: L4-5 Laminotomy, Partial facetectomy and foraminotomy with use of microscope Consent Informed Consent was obtained for this operation. I have explained the nature, purpose and benefits of the operation. I have discussed the risks and benefit of the operation including possible complications or adverse events with patient/family. Alternative(s) were discussed with the patient with their relative benefits and risks as well as the consequences of not accepting the operation were included in obtaining consent. Surgeon: IRVIN GIRON MD, PHD Procedure Assisted By: Eduardo Prince Description of Procedure This patient is suffering from neurogenic claudication. MRI shows severe L4-5 central stenosis. The patient was offered a decompression. The procedure complications were explained. The patient was consented. The patient was brought to the operating room and endotracheally intubated. The patient was turned in prone position on the Eladio frame. Prep and drape was done followed by timeout. The Physician assistant passenger locomotive engineer provided access. A mid lumbar incision was made followed by release of the paravertebral muscle right to expose the L4-5 lamina and facet joints. An intraoperative x-ray was obtained to confirm the correct level. The microscope was brought in. I took over the procedure. The high-speed drill was used to do a L4-5 laminotomy until flavum ligament was reached. A #2 Kerrison was used to expand the laminotomy near flush to the pedicles and to include a partial facetectomy. The flavum ligament was opened and resected with a #3 Kerrison to decompress the underlying thecal sac. The flavum ligament was removed to decompress the lateral recess and the exiting L5 nerve root. The patient was turned contralaterally. The spinous process was undercut. In this manner was able to remove more flavum ligament from the contralateral side to decompress the thecal sac and exiting nerve root contralaterally. A long nerve hook could be easily passed along the medial side of the pedicles as a sign of adequate decompression. The microscope was removed. Hemostasis was done. The physician assistant passenger locomotive engineer close the Incision in 2 layers. Steri-Strips were used to approximate incision. An OpSite with Tegaderm was used to cover the incision. All sponge needle counts were correct. Patient was extubated and transported in stable is to recovery room. Anesthesia: General Estimated Blood Loss (ml): 20 Complications: None Duration of Surgery: Under 60 Minutes Postoperative Plan: Discharge to home
[2025-04-06 10:17] VITALS: BP 153/70; PULSE 70; RESP 12; TEMP 36.1; O2SAT 97
[2025-04-06 10:22] VITALS: BP 143/59; PULSE 76; RESP 12; O2SAT 99
[2025-04-06 10:27] VITALS: BP 126/60; PULSE 76; RESP 13; O2SAT 93
[2025-04-06 10:32] VITALS: BP 140/60; PULSE 74; RESP 16; O2SAT 94
[2025-04-06 10:45] VITALS: BP 127/54; PULSE 70; RESP 20; TEMP 36.1; O2SAT 95
== END 2025-04-06 11:42 | disposition home or self-care (01) ==
LOC: HO.SSS 07:19
PROVIDERS: PCP Internal Medicine; Visit Provider Neurological Surgery
PROC: (CPT 63047; principal; 2025-04-06 10:00)
DX: M48.062 Spinal stenosis, lumbar region with neurogenic claudication (principal); M54.50 Low back pain, unspecified; R26.2 Difficulty in walking, not elsewhere classified; E11.9 Type 2 diabetes mellitus without complications; Z85.828 Personal history of other malignant neoplasm of skin; Z79.84 Long term (current) use of oral hypoglycemic drugs; Z79.899 Other long term (current) drug therapy
CPT/HCPCS: 63047; 82947; J0131; J0690; J1100; J1885; J2250; J2405; J2704; J3010

== ENCOUNTER → 2025-04-06 07:18 | Outpatient (BNV) | payer MEDICARE, SELFPAY | PROVIDERS: PCP Internal Medicine; Visit Provider Neurological Surgery | DX: M48.062 Spinal stenosis, lumbar region with neurogenic claudication (principal) | CPT/HCPCS: 63047; 99499 ==